=== PATIENT | male | born 1955 | race Caucasian/White ===

== ENCOUNTER 2017-12-13 08:18 | Outpatient (CLI) | payer MEDICARE ==
--- NOTE | 2017-12-13 11:36 | ULT ---
BILATERAL RENAL ULTRASOUND: Date: 12/13/17 HISTORY: Chronic renal failure. COMPARISON: None. TECHNIQUE: Sagittal and transverse imaging is performed. FINDINGS: Bilaterally, no hydronephrosis. Anechoic focus in the right kidney measuring 2.1 x 1.8 x 2.1 cm. Righ t renal cyst is suspected. There is a small exophytic focus in the lower pole left kidney measuring 1 .1 x 1.2 x 1.2 cm. There is a slightly larger anechoic focus in the left kidney measuring 1.6 x 1.6 x 2.0 cm. Right kidney measures 13.0 x 6.4 x 6.2 cm. Left kidney measures 14.2 x 6.6 x 5.1 cm. Urinary bladder is grossly unremarkable. Limited evaluation due to inadequate distention. Bilateral u reteral jets are identified. IMPRESSION: 1. No hydronephrosis. 2. Bilateral renal cortical cysts. POS: [facility]
== END 2017-12-13 08:19 | disposition home or self-care (01) ==
LOC: BURULT 08:18
PROVIDERS: ATTEND Internal Medicine Nephrology
DX: N17.9 Acute kidney failure, unspecified (principal); N28.1 Cyst of kidney, acquired
CPT/HCPCS: 76770

== ENCOUNTER 2020-07-13 21:08 | Emergency (ER) | payer MEDICARE ==
[~2020-07-13 21:08] MED LIST: Iopamidol 370 76% 100 ML VIAL ONE
[2020-07-13 22:13] LABS: #Basophils 0.1 thou/uL (0.0-0.2); #Eosinphils 0.2 thou/uL (0.0-0.7); #Lymphocytes 2.3 thou/uL (1.20-3.40); #Neutrophils 10.9 thou/uL (1.40-6.50); %Basophils 0.5 % (0.0-1.0); %Eosinophils 1.4 % (0.0-10.0); %Monocytes 6.7 % (0.0-10.0); %Neutrophils 75.5 % (42.0-75.0); Mean Corpuscular HGB CONC 32.2 g/dL (32.0-36.0); Mean Corpuscular Hemoglobin 28.6 pg (27.0-31.0); Mean Corpuscular Volume 88.8 fL (78.0-98.0); Mean Platelet Volume 6.6 fL (7.4-10.4); Platelet Count 232 thou/uL (130-400); RBC Distribution Width 15.8 % (11.5-14.5); Red Blood Cell (RBC) Count 3.83 mill/uL (4.70-6.10); White Blood Cell (WBC) Count 14.4 thou/uL (4.8-10.8)
[2020-07-13 22:24] LABS: ALT (SGPT) 38 U/L (8-55); AST (SGOT) 44 U/L (5-34); Albumin 1.8 g/dL (3.4-4.8); Alkaline Phosphatase 173 U/L (40-110); Anion Gap 11 mmol/L (10-20); BUN (Urea Nitrogen) 13 mg/dL (8.4-25.7); Bilirubin, Total 0.3 mg/dL (0.2-1.2); Calc. Creatinine Clearance 0 mL/min (70-130); Calcium 7.4 mg/dL (7.8-10.44); Carbon Dioxide 23 mmol/L (23-31); Chloride 108 mmol/L (98-107); Globulin 3.7 g/dL (2.4-3.5); Glucose 96 mg/dL (80-115); Potassium 3.4 mmol/L (3.5-5.1); Protein, Total 5.5 g/dL (5.8-8.1); Sodium 139 mmol/L (136-145)
[2020-07-13] MEDS ORDERED: Ondansetron ODT 4 MG TAB ONE (22:24)
[2020-07-13] MEDS ORDERED: Sodium Chloride 0.9% 100 ML ONE (22:43)
[2020-07-13] MEDS ORDERED: Cefepime 2 GM VIAL ONE (22:43)
== END 2020-07-14 01:57 | disposition short-term general hospital (02) ==
LOC: BURERS 21:08
DX: L89.154 Pressure ulcer of sacral region, stage 4 (principal); L03.317 Cellulitis of buttock; K57.30 Diverticulosis of large intestine without perforation or abscess without bleeding; I71.4 Abdominal aortic aneurysm, without rupture; K21.9 Gastro-esophageal reflux disease without esophagitis; E78.00 Pure hypercholesterolemia, unspecified; I25.10 Atherosclerotic heart disease of native coronary artery without angina pectoris; I25.2 Old myocardial infarction; I10 Essential (primary) hypertension; Z79.899 Other long term (current) drug therapy; Z79.82 Long term (current) use of aspirin
CPT/HCPCS: 36415; 72193; 80053; 83605; 85025; 87040; 87070; 87077; 87186; 87205; 96365; 96367; J0692; J3370; J3490; Q0162; Q9967

== ENCOUNTER 2020-07-24 14:00 | Inpatient (IN) | payer MEDICARE ==
[2020-07-24 15:34] VITALS: BMI 28.8
[2020-07-24] MEDS ORDERED: Loperamide HCl 2 MG CAP PO PRN (17:53)
[2020-07-24] MEDS ORDERED: Benzonatate 100 MG CAP PO PRN (17:53)
[2020-07-24] MEDS ORDERED: MEROPENEM 1 GM/50 ML IVPB SCH (20:00)
[2020-07-24] MEDS: Meropenem 1 GM in Sodium Chloride 0.9% 100 ML IVPB SCH (20:19)
[2020-07-24] MEDS: Rosuvastatin 10 MG TAB PO SCH (20:21)
[2020-07-24] MEDS: Acetaminophen 325 MG TAB PO PRN (20:21)
[2020-07-24] MEDS: Carvedilol 3.125 MG TAB PO SCH (20:21)
[2020-07-24] MEDS: Potassium Chloride 20 MEQ TAB PO SCH (20:22)
[2020-07-24] MEDS: Calcium Carbonate 600 MG + Vit D TAB PO SCH (20:22)
[2020-07-24] MEDS: traMADol HCl 50 MG TAB PO PRN (20:23)
[2020-07-24] MEDS: Mometasone/Formoterol 60 PUFF AER INH SCH (20:43)
[2020-07-25] MEDS: Meropenem 1 GM in Sodium Chloride 0.9% 100 ML IVPB SCH ×3 (04:27→21:12)
[2020-07-25] MEDS ORDERED: Meropenem 1 GM VIAL ONE (04:29)
[2020-07-25 05:25] LABS: #Eosinphils 0.3 thou/uL (0.0-0.7); #Lymphocytes 1.6 thou/uL (1.20-3.40); #Monocytes 0.9 thou/uL (0.11-0.59); %Basophils 0.3 % (0.0-1.0); %Eosinophils 1.7 % (0.0-10.0); %Lymphocytes 10.5 % (21.0-51.0); %Monocytes 6.1 % (0.0-10.0); %Neutrophils 81.4 % (42.0-75.0); Hemoglobin 9.7 g/dL (14.0-18.0); Mean Corpuscular HGB CONC 33.1 g/dL (32.0-36.0); Mean Corpuscular Hemoglobin 29.2 pg (27.0-31.0); Mean Corpuscular Volume 88.3 fL (78.0-98.0); Mean Platelet Volume 7.8 fL (7.4-10.4); Platelet Count 138 thou/uL (130-400); RBC Distribution Width 16.3 % (11.5-14.5); Red Blood Cell (RBC) Count 3.33 mill/uL (4.70-6.10); White Blood Cell (WBC) Count 14.8 thou/uL (4.8-10.8)
[2020-07-25 05:42] LABS: ALT (SGPT) 50 U/L (8-55); AST (SGOT) 30 U/L (5-34); Albumin 1.9 g/dL (3.4-4.8); Alkaline Phosphatase 111 U/L (40-110); Anion Gap 12 mmol/L (10-20); BUN (Urea Nitrogen) 8 mg/dL (8.4-25.7); Bilirubin, Total 0.4 mg/dL (0.2-1.2); CRP (Inflammatory) 4.62 mg/dL (= or < 0.5); Calc. Creatinine Clearance 180 mL/min (70-130); Calcium 6.6 mg/dL (7.8-10.44); Carbon Dioxide 20 mmol/L (23-31); Chloride 114 mmol/L (98-107); Globulin 2.2 g/dL (2.4-3.5); Glucose 109 mg/dL (80-115); Potassium 3.7 mmol/L (3.5-5.1); Protein, Total 4.1 g/dL (5.8-8.1); Sodium 142 mmol/L (136-145)
[2020-07-25] MEDS ORDERED: Morphine 4 MG/ML VIAL ONE (10:08)
[2020-07-25] MEDS ORDERED: Morphine 2 MG/ML VIAL SLOW IVP SCH (10:15)
[2020-07-25] MEDS: Mometasone/Formoterol 60 PUFF AER INH SCH ×2 (10:49→21:33)
[2020-07-25] MEDS: Ascorbic Acid 500 mg Chewable Tablet PO SCH (10:57)
[2020-07-25] MEDS: Clopidogrel Bisulfate 75 MG TAB PO SCH (10:57)
[2020-07-25] MEDS: Saccharomyces boulardii 250 MG CAP PO SCH (10:58)
[2020-07-25] MEDS: predniSONE 20 MG TAB PO SCH (10:58)
[2020-07-25] MEDS: Escitalopram Oxalate 20 mg Tablet PO SCH (10:58)
[2020-07-25] MEDS: Calcium Carbonate 600 MG + Vit D TAB PO SCH ×2 (10:58→21:17)
[2020-07-25] MEDS: Carvedilol 3.125 MG TAB PO SCH ×2 (10:58→21:17)
[2020-07-25] MEDS: Aspirin 81 mg Enteric Coated Tablet PO SCH (10:58)
[2020-07-25] MEDS: Potassium Chloride 20 MEQ TAB PO SCH ×3 (11:00→21:16)
[2020-07-25] MEDS: Polyethylene Glycol 3350 17 GM Packet PO SCH (11:00)
[2020-07-25] MEDS: traMADol HCl 50 MG TAB PO PRN (16:45)
[2020-07-25] MEDS: Acetaminophen 325 MG TAB PO PRN (16:46)
[2020-07-25] MEDS: Rosuvastatin 10 MG TAB PO SCH (21:17)
[2020-07-26] MEDS: Meropenem 1 GM in Sodium Chloride 0.9% 100 ML IVPB SCH ×3 (04:14→20:36)
[2020-07-26 06:15] LABS: Potassium 4.4 mmol/L (3.5-5.1)
[2020-07-26] MEDS: Escitalopram Oxalate 20 mg Tablet PO SCH (08:36)
[2020-07-26] MEDS: Ascorbic Acid 500 mg Chewable Tablet PO SCH (08:36)
[2020-07-26] MEDS: Calcium Carbonate 600 MG + Vit D TAB PO SCH ×2 (08:37→20:36)
[2020-07-26] MEDS: Aspirin 81 mg Enteric Coated Tablet PO SCH (08:37)
[2020-07-26] MEDS: Clopidogrel Bisulfate 75 MG TAB PO SCH (08:37)
[2020-07-26] MEDS: predniSONE 20 MG TAB PO SCH (08:37)
[2020-07-26] MEDS: Carvedilol 3.125 MG TAB PO SCH ×2 (08:37→20:36)
[2020-07-26] MEDS: Saccharomyces boulardii 250 MG CAP PO SCH (08:37)
[2020-07-26] MEDS: Polyethylene Glycol 3350 17 GM Packet PO SCH (08:43)
[2020-07-26] MEDS: Mometasone/Formoterol 60 PUFF AER INH SCH ×2 (08:45→20:37)
[2020-07-26] MEDS: Potassium Chloride 20 MEQ TAB PO SCH ×2 (08:48→20:37)
[2020-07-26] MEDS: traMADol HCl 50 MG TAB PO PRN (11:55)
[2020-07-26] MEDS: Rosuvastatin 10 MG TAB PO SCH (20:36)
[2020-07-27] MEDS: Meropenem 1 GM in Sodium Chloride 0.9% 100 ML IVPB SCH ×3 (03:58→21:09)
[2020-07-27] MEDS: Aspirin 81 mg Enteric Coated Tablet PO SCH (09:54)
[2020-07-27] MEDS: Ascorbic Acid 500 mg Chewable Tablet PO SCH (09:54)
[2020-07-27] MEDS: Carvedilol 3.125 MG TAB PO SCH ×2 (09:54→21:11)
[2020-07-27] MEDS: Clopidogrel Bisulfate 75 MG TAB PO SCH (09:54)
[2020-07-27] MEDS: Calcium Carbonate 600 MG + Vit D TAB PO SCH ×2 (09:55→21:11)
[2020-07-27] MEDS: Potassium Chloride 20 MEQ TAB PO SCH ×2 (09:55→21:12)
[2020-07-27] MEDS: Saccharomyces boulardii 250 MG CAP PO SCH (09:55)
[2020-07-27] MEDS: predniSONE 20 MG TAB PO SCH (09:56)
[2020-07-27] MEDS: traMADol HCl 50 MG TAB PO PRN ×2 (09:56→21:10)
[2020-07-27] MEDS: Escitalopram Oxalate 20 mg Tablet PO SCH (09:56)
[2020-07-27] MEDS: Mometasone/Formoterol 60 PUFF AER INH SCH ×2 (09:57→21:17)
[2020-07-27] MEDS: Polyethylene Glycol 3350 17 GM Packet PO SCH (14:37)
[2020-07-27] MEDS: Morphine 4 MG/ML VIAL SLOW IVP PRN (15:10)
[2020-07-27] MEDS: Rosuvastatin 10 MG TAB PO SCH (21:11)
[2020-07-28] MEDS: Meropenem 1 GM in Sodium Chloride 0.9% 100 ML IVPB SCH ×3 (04:18→20:52)
[2020-07-28] MEDS: Mometasone/Formoterol 60 PUFF AER INH SCH ×2 (08:08→20:53)
[2020-07-28] MEDS: predniSONE 20 MG TAB PO SCH (08:09)
[2020-07-28] MEDS: Ascorbic Acid 500 mg Chewable Tablet PO SCH (08:09)
[2020-07-28] MEDS: Aspirin 81 mg Enteric Coated Tablet PO SCH (08:09)
[2020-07-28] MEDS: Saccharomyces boulardii 250 MG CAP PO SCH (08:09)
[2020-07-28] MEDS: Polyethylene Glycol 3350 17 GM Packet PO SCH (08:09)
[2020-07-28] MEDS: Calcium Carbonate 600 MG + Vit D TAB PO SCH ×2 (08:09→20:50)
[2020-07-28] MEDS: Escitalopram Oxalate 20 mg Tablet PO SCH (08:14)
[2020-07-28] MEDS: Potassium Chloride 20 MEQ TAB PO SCH ×2 (08:15→20:50)
[2020-07-28] MEDS: Carvedilol 3.125 MG TAB PO SCH ×2 (08:15→20:50)
[2020-07-28] MEDS: Clopidogrel Bisulfate 75 MG TAB PO SCH (08:15)
[2020-07-28] MEDS ORDERED: Nystatin Powder 15 GM BOT TOP SCH (11:00)
[2020-07-28] MEDS: Ondansetron ODT 4 MG TAB PO PRN (12:10)
[2020-07-28] MEDS: traMADol HCl 50 MG TAB PO PRN (12:55)
[2020-07-28] MEDS: Rosuvastatin 10 MG TAB PO SCH (20:50)
[2020-07-28] MEDS: Nystatin Powder 15 GM BOT TOP SCH (20:54)
[2020-07-29] MEDS: Meropenem 1 GM in Sodium Chloride 0.9% 100 ML IVPB SCH ×3 (04:06→20:55)
[2020-07-29] MEDS: Ascorbic Acid 500 mg Chewable Tablet PO SCH (08:05)
[2020-07-29] MEDS: Saccharomyces boulardii 250 MG CAP PO SCH (08:06)
[2020-07-29] MEDS: Potassium Chloride 20 MEQ TAB PO SCH ×2 (08:06→21:04)
[2020-07-29] MEDS: predniSONE 20 MG TAB PO SCH (08:07)
[2020-07-29] MEDS: Calcium Carbonate 600 MG + Vit D TAB PO SCH ×2 (08:07→21:04)
[2020-07-29] MEDS: Escitalopram Oxalate 20 mg Tablet PO SCH (08:08)
[2020-07-29] MEDS: Carvedilol 3.125 MG TAB PO SCH ×2 (08:08→21:04)
[2020-07-29] MEDS: Aspirin 81 mg Enteric Coated Tablet PO SCH (08:08)
[2020-07-29] MEDS: Clopidogrel Bisulfate 75 MG TAB PO SCH (08:08)
[2020-07-29] MEDS: Mometasone/Formoterol 60 PUFF AER INH SCH ×2 (08:09→21:05)
[2020-07-29] MEDS: Nystatin Powder 15 GM BOT TOP SCH ×2 (08:13→21:46)
[2020-07-29] MEDS: Polyethylene Glycol 3350 17 GM Packet PO SCH (08:13)
[2020-07-29] MEDS: Ondansetron ODT 4 MG TAB PO PRN (08:19)
[2020-07-29] MEDS ORDERED: Morphine 2 MG/ML VIAL ONE (11:22)
[2020-07-29] MEDS ORDERED: Morphine 4 MG/ML VIAL ONE (11:30)
[2020-07-29] MEDS: Morphine 4 MG/ML VIAL SLOW IVP PRN (11:32)
[2020-07-29] MEDS: traMADol HCl 50 MG TAB PO PRN (14:09)
[2020-07-29] MEDS: Rosuvastatin 10 MG TAB PO SCH (21:04)
[2020-07-30] MEDS: Meropenem 1 GM in Sodium Chloride 0.9% 100 ML IVPB SCH ×3 (04:22→20:52)
[2020-07-30 05:35] LABS: #Eosinphils 0.3 thou/uL (0.0-0.7); #Lymphocytes 1.5 thou/uL (1.20-3.40); #Monocytes 0.7 thou/uL (0.11-0.59); #Neutrophils 8.2 thou/uL (1.40-6.50); %Basophils 0.3 % (0.0-1.0); %Eosinophils 3.1 % (0.0-10.0); %Lymphocytes 14.2 % (21.0-51.0); %Monocytes 6.3 % (0.0-10.0); Hemoglobin 9.9 g/dL (14.0-18.0); Mean Corpuscular HGB CONC 32.9 g/dL (32.0-36.0); Mean Corpuscular Hemoglobin 29.2 pg (27.0-31.0); Mean Corpuscular Volume 88.9 fL (78.0-98.0); Mean Platelet Volume 7.2 fL (7.4-10.4); Platelet Count 156 thou/uL (130-400); RBC Distribution Width 15.5 % (11.5-14.5); Red Blood Cell (RBC) Count 3.38 mill/uL (4.70-6.10); White Blood Cell (WBC) Count 10.8 thou/uL (4.8-10.8)
[2020-07-30 05:42] LABS: Anion Gap 10 mmol/L (10-20); Calc. Creatinine Clearance 201 mL/min (70-130); Calcium 7.4 mg/dL (7.8-10.44); Carbon Dioxide 22 mmol/L (23-31); Chloride 109 mmol/L (98-107); Glucose 116 mg/dL (80-115); Sodium 137 mmol/L (136-145)
[2020-07-30 05:46] LABS: BUN (Urea Nitrogen) 8 mg/dL (8.4-25.7)
[2020-07-30] MEDS: Saccharomyces boulardii 250 MG CAP PO SCH (09:52)
[2020-07-30] MEDS: predniSONE 20 MG TAB PO SCH (09:52)
[2020-07-30] MEDS: Aspirin 81 mg Enteric Coated Tablet PO SCH (09:52)
[2020-07-30] MEDS: Carvedilol 3.125 MG TAB PO SCH ×2 (09:52→20:53)
[2020-07-30] MEDS: Escitalopram Oxalate 20 mg Tablet PO SCH (09:53)
[2020-07-30] MEDS: Ascorbic Acid 500 mg Chewable Tablet PO SCH (09:53)
[2020-07-30] MEDS: Clopidogrel Bisulfate 75 MG TAB PO SCH (09:53)
[2020-07-30] MEDS: Calcium Carbonate 600 MG + Vit D TAB PO SCH ×2 (09:53→20:53)
[2020-07-30] MEDS: Potassium Chloride 20 MEQ TAB PO SCH ×2 (09:54→20:53)
[2020-07-30] MEDS: Polyethylene Glycol 3350 17 GM Packet PO SCH (09:55)
[2020-07-30] MEDS: Mometasone/Formoterol 60 PUFF AER INH SCH ×2 (09:55→20:54)
[2020-07-30] MEDS: Metoclopramide HCl 10 MG/2 ML VIAL IVP PRN (11:00)
[2020-07-30] MEDS: Nystatin Powder 15 GM BOT TOP SCH ×2 (11:02→20:54)
[2020-07-30] MEDS: traMADol HCl 50 MG TAB PO PRN (15:14)
[2020-07-30] MEDS: Rosuvastatin 10 MG TAB PO SCH (20:53)
[2020-07-31] MEDS: Meropenem 1 GM in Sodium Chloride 0.9% 100 ML IVPB SCH ×3 (03:48→21:02)
[2020-07-31] MEDS: Escitalopram Oxalate 20 mg Tablet PO SCH (09:13)
[2020-07-31] MEDS: Carvedilol 3.125 MG TAB PO SCH ×2 (09:14→21:03)
[2020-07-31] MEDS: Potassium Chloride 20 MEQ TAB PO SCH ×2 (09:14→21:02)
[2020-07-31] MEDS: Ascorbic Acid 500 mg Chewable Tablet PO SCH (09:14)
[2020-07-31] MEDS: predniSONE 20 MG TAB PO SCH (09:14)
[2020-07-31] MEDS: Calcium Carbonate 600 MG + Vit D TAB PO SCH ×2 (09:14→21:03)
[2020-07-31] MEDS: Saccharomyces boulardii 250 MG CAP PO SCH (09:14)
[2020-07-31] MEDS: traMADol HCl 50 MG TAB PO PRN ×3 (09:15→21:03)
[2020-07-31] MEDS: Clopidogrel Bisulfate 75 MG TAB PO SCH (09:15)
[2020-07-31] MEDS: Mometasone/Formoterol 60 PUFF AER INH SCH ×2 (10:20→21:04)
[2020-07-31] MEDS: Aspirin 81 mg Enteric Coated Tablet PO SCH (10:22)
[2020-07-31] MEDS: Nystatin Powder 15 GM BOT TOP SCH ×2 (10:22→21:04)
[2020-07-31] MEDS: Polyethylene Glycol 3350 17 GM Packet PO SCH (10:23)
[2020-07-31] MEDS: Morphine 4 MG/ML VIAL SLOW IVP PRN (13:55)
[2020-07-31] MEDS: Rosuvastatin 10 MG TAB PO SCH (21:03)
[2020-08-01] MEDS: Meropenem 1 GM in Sodium Chloride 0.9% 100 ML IVPB SCH ×3 (03:51→20:30)
[2020-08-01] MEDS: Metoclopramide HCl 10 MG/2 ML VIAL IVP PRN ×2 (04:26→11:26)
[2020-08-01 09:19] LABS: #Basophils 0.1 thou/uL (0.0-0.2); #Eosinphils 0.4 thou/uL (0.0-0.7); #Lymphocytes 1.3 thou/uL (1.20-3.40); #Monocytes 0.5 thou/uL (0.11-0.59); #Neutrophils 10.2 thou/uL (1.40-6.50); %Basophils 0.6 % (0.0-1.0); %Eosinophils 3.3 % (0.0-10.0); %Monocytes 4.3 % (0.0-10.0); %Neutrophils 81.8 % (42.0-75.0); Hemoglobin 11.6 g/dL (14.0-18.0); Mean Corpuscular HGB CONC 31.3 g/dL (32.0-36.0); Mean Corpuscular Hemoglobin 28.3 pg (27.0-31.0); Mean Corpuscular Volume 90.4 fL (78.0-98.0); Mean Platelet Volume 6.5 fL (7.4-10.4); Platelet Count 193 thou/uL (130-400); RBC Distribution Width 15.5 % (11.5-14.5); White Blood Cell (WBC) Count 12.4 thou/uL (4.8-10.8)
[2020-08-01] MEDS: Ascorbic Acid 500 mg Chewable Tablet PO SCH (09:23)
[2020-08-01] MEDS: Aspirin 81 mg Enteric Coated Tablet PO SCH (09:23)
[2020-08-01] MEDS: Potassium Chloride 20 MEQ TAB PO SCH ×3 (09:23→20:31)
[2020-08-01] MEDS: Escitalopram Oxalate 20 mg Tablet PO SCH (09:24)
[2020-08-01] MEDS: Clopidogrel Bisulfate 75 MG TAB PO SCH (09:24)
[2020-08-01] MEDS: Carvedilol 3.125 MG TAB PO SCH ×2 (09:24→20:31)
[2020-08-01] MEDS: Saccharomyces boulardii 250 MG CAP PO SCH (09:24)
[2020-08-01] MEDS: Calcium Carbonate 600 MG + Vit D TAB PO SCH ×2 (09:24→20:31)
[2020-08-01 09:35] LABS: ALT (SGPT) 64 U/L (8-55); AST (SGOT) 32 U/L (5-34); Albumin 2.3 g/dL (3.4-4.8); Alkaline Phosphatase 116 U/L (40-110); BUN (Urea Nitrogen) 10 mg/dL (8.4-25.7); Bilirubin, Total 0.5 mg/dL (0.2-1.2); Calc. Creatinine Clearance 177 mL/min (70-130); Calcium 7.8 mg/dL (7.8-10.44); Carbon Dioxide 18 mmol/L (23-31); Chloride 77 mmol/L (98-107); Globulin 3.3 g/dL (2.4-3.5); Glucose 136 mg/dL (80-115); Protein, Total 5.6 g/dL (5.8-8.1)
[2020-08-01 09:42] LABS: Potassium 2.2 mmol/L (3.5-5.1)
[2020-08-01] MEDS: Mometasone/Formoterol 60 PUFF AER INH SCH ×2 (09:47→20:31)
[2020-08-01] MEDS: traMADol HCl 50 MG TAB PO PRN (09:48)
[2020-08-01] MEDS: Nystatin Powder 15 GM BOT TOP SCH ×2 (09:50→20:31)
[2020-08-01 09:51] LABS: Sodium 136 mmol/L (136-145)
[2020-08-01 09:55] LABS: Anion Gap 43 mmol/L (10-20)
[2020-08-01] MEDS: Polyethylene Glycol 3350 17 GM Packet PO SCH (13:48)
[2020-08-01] MEDS: Rosuvastatin 10 MG TAB PO SCH (20:31)
[2020-08-02] MEDS: Meropenem 1 GM in Sodium Chloride 0.9% 100 ML IVPB SCH ×3 (03:27→20:04)
[2020-08-02] MEDS: Potassium Chloride 20 MEQ TAB PO SCH ×3 (09:17→20:05)
[2020-08-02] MEDS: Aspirin 81 mg Enteric Coated Tablet PO SCH (09:18)
[2020-08-02] MEDS: Ascorbic Acid 500 mg Chewable Tablet PO SCH (09:18)
[2020-08-02] MEDS: Calcium Carbonate 600 MG + Vit D TAB PO SCH ×2 (09:18→20:06)
[2020-08-02] MEDS: Saccharomyces boulardii 250 MG CAP PO SCH (09:18)
[2020-08-02] MEDS: Carvedilol 3.125 MG TAB PO SCH ×2 (09:18→20:06)
[2020-08-02] MEDS: Clopidogrel Bisulfate 75 MG TAB PO SCH (09:18)
[2020-08-02] MEDS: Escitalopram Oxalate 20 mg Tablet PO SCH (09:19)
[2020-08-02] MEDS: Metoclopramide HCl 10 MG/2 ML VIAL IVP PRN (09:19)
[2020-08-02] MEDS: Mometasone/Formoterol 60 PUFF AER INH SCH ×2 (09:20→20:06)
[2020-08-02] MEDS: Nystatin Powder 15 GM BOT TOP SCH ×2 (09:20→20:06)
[2020-08-02] MEDS: traMADol HCl 50 MG TAB PO PRN ×2 (10:08→20:34)
[2020-08-02] MEDS: Polyethylene Glycol 3350 17 GM Packet PO SCH (18:54)
[2020-08-02] MEDS: Rosuvastatin 10 MG TAB PO SCH (20:06)
[2020-08-03] MEDS: Meropenem 1 GM in Sodium Chloride 0.9% 100 ML IVPB SCH ×3 (05:14→20:30)
[2020-08-03 05:19] LABS: Anion Gap 12 mmol/L (10-20)
[2020-08-03 05:29] LABS: ALT (SGPT) 51 U/L (8-55); AST (SGOT) 25 U/L (5-34); Alkaline Phosphatase 110 U/L (40-110); BUN (Urea Nitrogen) 10 mg/dL (8.4-25.7); Bilirubin, Total 0.5 mg/dL (0.2-1.2); Calc. Creatinine Clearance 177 mL/min (70-130); Calcium 7.8 mg/dL (7.8-10.44); Carbon Dioxide 19 mmol/L (23-31); Chloride 111 mmol/L (98-107); Globulin 3.3 g/dL (2.4-3.5); Glucose 121 mg/dL (80-115); Potassium 4.2 mmol/L (3.5-5.1); Protein, Total 5.3 g/dL (5.8-8.1); Sodium 138 mmol/L (136-145)
[2020-08-03] MEDS: Acetaminophen 325 MG TAB PO PRN (06:08)
[2020-08-03] MEDS: traMADol HCl 50 MG TAB PO PRN ×2 (06:09→13:28)
[2020-08-03] MEDS: Potassium Chloride 20 MEQ TAB PO SCH ×3 (08:18→20:31)
[2020-08-03] MEDS: Saccharomyces boulardii 250 MG CAP PO SCH (08:19)
[2020-08-03] MEDS: Aspirin 81 mg Enteric Coated Tablet PO SCH (08:19)
[2020-08-03] MEDS: Clopidogrel Bisulfate 75 MG TAB PO SCH (08:19)
[2020-08-03] MEDS: Carvedilol 3.125 MG TAB PO SCH ×2 (08:19→20:31)
[2020-08-03] MEDS: Escitalopram Oxalate 20 mg Tablet PO SCH (08:19)
[2020-08-03] MEDS: Calcium Carbonate 600 MG + Vit D TAB PO SCH ×2 (08:19→20:30)
[2020-08-03] MEDS: Ascorbic Acid 500 mg Chewable Tablet PO SCH (08:20)
[2020-08-03] MEDS: Mometasone/Formoterol 60 PUFF AER INH SCH ×2 (08:20→20:33)
[2020-08-03] MEDS: Nystatin Powder 15 GM BOT TOP SCH ×2 (08:22→20:36)
[2020-08-03] MEDS: Polyethylene Glycol 3350 17 GM Packet PO SCH (08:23)
[2020-08-03] MEDS: Morphine 2 MG/ML VIAL SLOW IVP PRN (13:29)
[2020-08-03] MEDS: Mirtazapine 15 MG TAB PO SCH (20:31)
[2020-08-03] MEDS: Rosuvastatin 10 MG TAB PO SCH (20:32)
[2020-08-04] MEDS: Meropenem 1 GM in Sodium Chloride 0.9% 100 ML IVPB SCH ×3 (03:33→20:42)
[2020-08-04] MEDS: Ascorbic Acid 500 mg Chewable Tablet PO SCH (08:39)
[2020-08-04] MEDS: Saccharomyces boulardii 250 MG CAP PO SCH (08:39)
[2020-08-04] MEDS: Aspirin 81 mg Enteric Coated Tablet PO SCH (08:39)
[2020-08-04] MEDS: Potassium Chloride 20 MEQ TAB PO SCH ×3 (08:39→21:00)
[2020-08-04] MEDS: Carvedilol 3.125 MG TAB PO SCH ×2 (08:40→21:01)
[2020-08-04] MEDS: Escitalopram Oxalate 20 mg Tablet PO SCH (08:40)
[2020-08-04] MEDS: Clopidogrel Bisulfate 75 MG TAB PO SCH (08:40)
[2020-08-04] MEDS: Calcium Carbonate 600 MG + Vit D TAB PO SCH ×2 (08:40→21:00)
[2020-08-04] MEDS: Mometasone/Formoterol 60 PUFF AER INH SCH ×2 (08:44→21:03)
[2020-08-04] MEDS: Nystatin Powder 15 GM BOT TOP SCH ×2 (08:45→21:05)
[2020-08-04] MEDS: traMADol HCl 50 MG TAB PO PRN ×2 (12:03→21:01)
[2020-08-04] MEDS: Polyethylene Glycol 3350 17 GM Packet PO SCH (12:04)
[2020-08-04] MEDS: Rosuvastatin 10 MG TAB PO SCH (21:00)
[2020-08-04] MEDS: Mirtazapine 15 MG TAB PO SCH (21:00)
[2020-08-04] MEDS: Acetaminophen 325 MG TAB PO PRN (21:01)
[2020-08-05] MEDS: Meropenem 1 GM in Sodium Chloride 0.9% 100 ML IVPB SCH ×3 (04:06→20:27)
[2020-08-05] MEDS: Ascorbic Acid 500 mg Chewable Tablet PO SCH (08:33)
[2020-08-05] MEDS: Aspirin 81 mg Enteric Coated Tablet PO SCH (08:36)
[2020-08-05] MEDS: Saccharomyces boulardii 250 MG CAP PO SCH (08:36)
[2020-08-05] MEDS: Calcium Carbonate 600 MG + Vit D TAB PO SCH ×2 (08:36→20:42)
[2020-08-05] MEDS: Carvedilol 3.125 MG TAB PO SCH ×2 (08:36→20:42)
[2020-08-05] MEDS: traMADol HCl 50 MG TAB PO PRN ×3 (08:36→20:54)
[2020-08-05] MEDS: Clopidogrel Bisulfate 75 MG TAB PO SCH (08:37)
[2020-08-05] MEDS: Escitalopram Oxalate 20 mg Tablet PO SCH (08:37)
[2020-08-05] MEDS: Potassium Chloride 20 MEQ TAB PO SCH ×3 (08:38→20:42)
[2020-08-05] MEDS: Nystatin Powder 15 GM BOT TOP SCH ×2 (08:39→20:43)
[2020-08-05] MEDS: Mometasone/Formoterol 60 PUFF AER INH SCH ×2 (08:39→20:43)
[2020-08-05] MEDS: Polyethylene Glycol 3350 17 GM Packet PO SCH (10:34)
[2020-08-05] MEDS: Morphine 2 MG/ML VIAL SLOW IVP PRN (14:24)
[2020-08-05] MEDS: Rosuvastatin 10 MG TAB PO SCH (20:42)
[2020-08-05] MEDS: Mirtazapine 15 MG TAB PO SCH (20:42)
[2020-08-06] MEDS: Meropenem 1 GM in Sodium Chloride 0.9% 100 ML IVPB SCH ×3 (03:56→20:21)
[2020-08-06] MEDS: Escitalopram Oxalate 20 mg Tablet PO SCH (09:08)
[2020-08-06] MEDS: Potassium Chloride 20 MEQ TAB PO SCH ×3 (09:08→20:21)
[2020-08-06] MEDS: Saccharomyces boulardii 250 MG CAP PO SCH (09:08)
[2020-08-06] MEDS: Ascorbic Acid 500 mg Chewable Tablet PO SCH (09:08)
[2020-08-06] MEDS: Aspirin 81 mg Enteric Coated Tablet PO SCH (09:09)
[2020-08-06] MEDS: Clopidogrel Bisulfate 75 MG TAB PO SCH (09:09)
[2020-08-06] MEDS: Carvedilol 3.125 MG TAB PO SCH ×2 (09:09→20:21)
[2020-08-06] MEDS: Calcium Carbonate 600 MG + Vit D TAB PO SCH ×2 (09:09→20:21)
[2020-08-06] MEDS: Mometasone/Formoterol 60 PUFF AER INH SCH ×2 (09:10→20:22)
[2020-08-06] MEDS: Nystatin Powder 15 GM BOT TOP SCH ×2 (09:12→20:22)
[2020-08-06] MEDS: traMADol HCl 50 MG TAB PO PRN ×3 (09:22→20:55)
[2020-08-06] MEDS: Polyethylene Glycol 3350 17 GM Packet PO SCH (09:25)
[2020-08-06] MEDS: Rosuvastatin 10 MG TAB PO SCH (20:21)
[2020-08-06] MEDS: Mirtazapine 15 MG TAB PO SCH (20:21)
[2020-08-07] MEDS: traMADol HCl 50 MG TAB PO PRN (04:03)
[2020-08-07] MEDS: Meropenem 1 GM in Sodium Chloride 0.9% 100 ML IVPB SCH ×3 (04:09→20:59)
[2020-08-07] MEDS: Ascorbic Acid 500 mg Chewable Tablet PO SCH (09:05)
[2020-08-07] MEDS: Clopidogrel Bisulfate 75 MG TAB PO SCH (09:08)
[2020-08-07] MEDS: Saccharomyces boulardii 250 MG CAP PO SCH (09:08)
[2020-08-07] MEDS: Potassium Chloride 20 MEQ TAB PO SCH ×3 (09:08→20:59)
[2020-08-07] MEDS: Calcium Carbonate 600 MG + Vit D TAB PO SCH ×2 (09:08→21:00)
[2020-08-07] MEDS: Carvedilol 3.125 MG TAB PO SCH ×2 (09:09→21:00)
[2020-08-07] MEDS: Aspirin 81 mg Enteric Coated Tablet PO SCH (09:09)
[2020-08-07] MEDS: Escitalopram Oxalate 20 mg Tablet PO SCH (09:09)
[2020-08-07] MEDS: Metoclopramide HCl 10 MG/2 ML VIAL IVP PRN (09:40)
[2020-08-07] MEDS: Mometasone/Formoterol 60 PUFF AER INH SCH (12:31)
[2020-08-07] MEDS: Nystatin Powder 15 GM BOT TOP SCH (12:33)
[2020-08-07] MEDS: Polyethylene Glycol 3350 17 GM Packet PO SCH (12:34)
[2020-08-07] MEDS: Morphine 2 MG/ML VIAL SLOW IVP PRN (13:05)
[2020-08-07] MEDS: Rosuvastatin 10 MG TAB PO SCH (20:59)
[2020-08-07] MEDS: Mirtazapine 15 MG TAB PO SCH (21:00)
[2020-08-08] MEDS: traMADol HCl 50 MG TAB PO PRN ×3 (00:55→14:04)
[2020-08-08] MEDS: Mometasone/Formoterol 60 PUFF AER INH SCH ×3 (00:57→21:00)
[2020-08-08] MEDS: Nystatin Powder 15 GM BOT TOP SCH ×3 (00:58→21:00)
[2020-08-08] MEDS: Meropenem 1 GM in Sodium Chloride 0.9% 100 ML IVPB SCH ×3 (04:50→20:34)
[2020-08-08 07:18] LABS: #Eosinphils 0.4 thou/uL (0.0-0.7); #Lymphocytes 1.5 thou/uL (1.20-3.40); #Monocytes 0.6 thou/uL (0.11-0.59); #Neutrophils 3.8 thou/uL (1.40-6.50); %Basophils 0.7 % (0.0-1.0); %Eosinophils 6.1 % (0.0-10.0); %Lymphocytes 23.8 % (21.0-51.0); %Monocytes 8.9 % (0.0-10.0); %Neutrophils 60.5 % (42.0-75.0); Hemoglobin 10.5 g/dL (14.0-18.0); Mean Corpuscular HGB CONC 32.1 g/dL (32.0-36.0); Mean Corpuscular Hemoglobin 28.4 pg (27.0-31.0); Mean Corpuscular Volume 88.6 fL (78.0-98.0); Mean Platelet Volume 5.4 fL (7.4-10.4); Platelet Count 187 thou/uL (130-400); RBC Distribution Width 15.3 % (11.5-14.5); Red Blood Cell (RBC) Count 3.71 mill/uL (4.70-6.10); White Blood Cell (WBC) Count 6.3 thou/uL (4.8-10.8)
[2020-08-08 07:36] LABS: ALT (SGPT) 55 U/L (8-55); AST (SGOT) 43 U/L (5-34); Albumin 1.8 g/dL (3.4-4.8); Alkaline Phosphatase 125 U/L (40-110); Anion Gap 12 mmol/L (10-20); BUN (Urea Nitrogen) 11 mg/dL (8.4-25.7); Bilirubin, Total 0.5 mg/dL (0.2-1.2); Calc. Creatinine Clearance 171 mL/min (70-130); Calcium 7.7 mg/dL (7.8-10.44); Carbon Dioxide 18 mmol/L (23-31); Chloride 112 mmol/L (98-107); Globulin 3.7 g/dL (2.4-3.5); Glucose 90 mg/dL (80-115); Potassium 4.3 mmol/L (3.5-5.1); Protein, Total 5.5 g/dL (5.8-8.1); Sodium 138 mmol/L (136-145)
[2020-08-08] MEDS: Ascorbic Acid 500 mg Chewable Tablet PO SCH (09:12)
[2020-08-08] MEDS: Escitalopram Oxalate 20 mg Tablet PO SCH (09:13)
[2020-08-08] MEDS: Clopidogrel Bisulfate 75 MG TAB PO SCH (09:13)
[2020-08-08] MEDS: Calcium Carbonate 600 MG + Vit D TAB PO SCH ×2 (09:13→20:38)
[2020-08-08] MEDS: Saccharomyces boulardii 250 MG CAP PO SCH (09:13)
[2020-08-08] MEDS: Potassium Chloride 20 MEQ TAB PO SCH ×3 (09:13→20:37)
[2020-08-08] MEDS: Carvedilol 3.125 MG TAB PO SCH ×2 (09:14→20:38)
[2020-08-08] MEDS: Aspirin 81 mg Enteric Coated Tablet PO SCH (09:14)
[2020-08-08] MEDS: Polyethylene Glycol 3350 17 GM Packet PO SCH (09:27)
[2020-08-08] MEDS: Rosuvastatin 10 MG TAB PO SCH (20:38)
[2020-08-08] MEDS: Mirtazapine 15 MG TAB PO SCH (20:38)
[2020-08-09] MEDS: Meropenem 1 GM in Sodium Chloride 0.9% 100 ML IVPB SCH ×3 (04:02→20:57)
[2020-08-09] MEDS: Calcium Carbonate 600 MG + Vit D TAB PO SCH ×2 (08:55→20:55)
[2020-08-09] MEDS: Ascorbic Acid 500 mg Chewable Tablet PO SCH (08:55)
[2020-08-09] MEDS: Saccharomyces boulardii 250 MG CAP PO SCH (08:55)
[2020-08-09] MEDS: Potassium Chloride 20 MEQ TAB PO SCH ×3 (08:56→20:54)
[2020-08-09] MEDS: Aspirin 81 mg Enteric Coated Tablet PO SCH (08:56)
[2020-08-09] MEDS: Escitalopram Oxalate 20 mg Tablet PO SCH (08:56)
[2020-08-09] MEDS: Clopidogrel Bisulfate 75 MG TAB PO SCH (08:56)
[2020-08-09] MEDS: Mometasone/Formoterol 60 PUFF AER INH SCH ×2 (08:57→21:01)
[2020-08-09] MEDS: Carvedilol 3.125 MG TAB PO SCH ×2 (08:57→20:55)
[2020-08-09] MEDS: Nystatin Powder 15 GM BOT TOP SCH ×2 (09:00→21:02)
[2020-08-09] MEDS: Polyethylene Glycol 3350 17 GM Packet PO SCH (09:00)
[2020-08-09] MEDS: traMADol HCl 50 MG TAB PO PRN ×2 (09:07→21:05)
[2020-08-09] MEDS: Mirtazapine 15 MG TAB PO SCH (20:55)
[2020-08-09] MEDS: Rosuvastatin 10 MG TAB PO SCH (20:55)
[2020-08-10] MEDS: traMADol HCl 50 MG TAB PO PRN ×2 (01:13→09:35)
[2020-08-10] MEDS: Meropenem 1 GM in Sodium Chloride 0.9% 100 ML IVPB SCH ×3 (04:28→20:00)
[2020-08-10] MEDS: Saccharomyces boulardii 250 MG CAP PO SCH (08:52)
[2020-08-10] MEDS: Ascorbic Acid 500 mg Chewable Tablet PO SCH (08:52)
[2020-08-10] MEDS: Potassium Chloride 20 MEQ TAB PO SCH ×3 (08:53→20:06)
[2020-08-10] MEDS: Carvedilol 3.125 MG TAB PO SCH ×2 (08:53→20:06)
[2020-08-10] MEDS: Clopidogrel Bisulfate 75 MG TAB PO SCH (08:54)
[2020-08-10] MEDS: Aspirin 81 mg Enteric Coated Tablet PO SCH (08:54)
[2020-08-10] MEDS: Calcium Carbonate 600 MG + Vit D TAB PO SCH ×2 (08:54→20:06)
[2020-08-10] MEDS: Escitalopram Oxalate 20 mg Tablet PO SCH (08:54)
[2020-08-10] MEDS: Polyethylene Glycol 3350 17 GM Packet PO SCH (08:55)
[2020-08-10] MEDS: Mometasone/Formoterol 60 PUFF AER INH SCH ×2 (08:59→20:08)
[2020-08-10] MEDS: Nystatin Powder 15 GM BOT TOP SCH ×2 (09:00→20:07)
[2020-08-10] MEDS: Morphine 2 MG/ML VIAL SLOW IVP PRN (09:47)
[2020-08-10] MEDS: Metoclopramide HCl 10 MG/2 ML VIAL IVP PRN (11:43)
[2020-08-10] MEDS: Mirtazapine 15 MG TAB PO SCH (20:06)
[2020-08-10] MEDS: Rosuvastatin 10 MG TAB PO SCH (20:06)
[2020-08-11] MEDS: Meropenem 1 GM in Sodium Chloride 0.9% 100 ML IVPB SCH ×3 (04:17→20:22)
[2020-08-11] MEDS: Ascorbic Acid 500 mg Chewable Tablet PO SCH (09:21)
[2020-08-11] MEDS: Carvedilol 3.125 MG TAB PO SCH ×2 (09:21→20:23)
[2020-08-11] MEDS: Aspirin 81 mg Enteric Coated Tablet PO SCH (09:22)
[2020-08-11] MEDS: Escitalopram Oxalate 20 mg Tablet PO SCH (09:22)
[2020-08-11] MEDS: Potassium Chloride 20 MEQ TAB PO SCH ×3 (09:23→16:57)
[2020-08-11] MEDS: Clopidogrel Bisulfate 75 MG TAB PO SCH (09:23)
[2020-08-11] MEDS: Calcium Carbonate 600 MG + Vit D TAB PO SCH ×2 (09:23→20:23)
[2020-08-11] MEDS: Saccharomyces boulardii 250 MG CAP PO SCH (09:23)
[2020-08-11] MEDS: Nystatin Powder 15 GM BOT TOP SCH ×2 (09:28→20:23)
[2020-08-11] MEDS: Mometasone/Formoterol 60 PUFF AER INH SCH ×2 (09:28→20:24)
[2020-08-11] MEDS: Polyethylene Glycol 3350 17 GM Packet PO SCH (09:34)
[2020-08-11] MEDS: traMADol HCl 50 MG TAB PO PRN (11:19)
[2020-08-11] MEDS: Rosuvastatin 10 MG TAB PO SCH (20:23)
[2020-08-11] MEDS: Mirtazapine 15 MG TAB PO SCH (20:23)
[2020-08-12] MEDS: traMADol HCl 50 MG TAB PO PRN ×2 (00:37→10:40)
[2020-08-12] MEDS: Meropenem 1 GM in Sodium Chloride 0.9% 100 ML IVPB SCH ×3 (05:00→20:29)
[2020-08-12] MEDS: Metoclopramide HCl 10 MG/2 ML VIAL IVP PRN (08:26)
[2020-08-12] MEDS: Potassium Chloride 20 MEQ TAB PO SCH ×2 (08:32→17:39)
[2020-08-12] MEDS: Saccharomyces boulardii 250 MG CAP PO SCH (08:35)
[2020-08-12] MEDS: Ascorbic Acid 500 mg Chewable Tablet PO SCH (08:35)
[2020-08-12] MEDS: Clopidogrel Bisulfate 75 MG TAB PO SCH (08:36)
[2020-08-12] MEDS: Aspirin 81 mg Enteric Coated Tablet PO SCH (08:36)
[2020-08-12] MEDS: Escitalopram Oxalate 20 mg Tablet PO SCH (08:36)
[2020-08-12] MEDS: Calcium Carbonate 600 MG + Vit D TAB PO SCH ×2 (08:36→20:29)
[2020-08-12] MEDS: Carvedilol 3.125 MG TAB PO SCH ×2 (08:36→20:30)
[2020-08-12] MEDS: Nystatin Powder 15 GM BOT TOP SCH ×2 (08:38→20:32)
[2020-08-12] MEDS: Mometasone/Formoterol 60 PUFF AER INH SCH ×2 (08:38→20:31)
[2020-08-12] MEDS: Polyethylene Glycol 3350 17 GM Packet PO SCH (08:42)
[2020-08-12] MEDS: Morphine 2 MG/ML VIAL SLOW IVP PRN (14:22)
[2020-08-12] MEDS: Mirtazapine 15 MG TAB PO SCH (20:29)
[2020-08-12] MEDS: Rosuvastatin 10 MG TAB PO SCH (20:29)
[2020-08-13] MEDS: Meropenem 1 GM in Sodium Chloride 0.9% 100 ML IVPB SCH ×3 (03:58→20:01)
[2020-08-13] MEDS: traMADol HCl 50 MG TAB PO PRN ×3 (05:01→20:02)
[2020-08-13] MEDS: Potassium Chloride 20 MEQ TAB PO SCH ×2 (09:03→17:58)
[2020-08-13] MEDS: Aspirin 81 mg Enteric Coated Tablet PO SCH (09:03)
[2020-08-13] MEDS: Calcium Carbonate 600 MG + Vit D TAB PO SCH ×2 (09:03→20:01)
[2020-08-13] MEDS: Saccharomyces boulardii 250 MG CAP PO SCH (09:03)
[2020-08-13] MEDS: Clopidogrel Bisulfate 75 MG TAB PO SCH (09:04)
[2020-08-13] MEDS: Escitalopram Oxalate 20 mg Tablet PO SCH (09:04)
[2020-08-13] MEDS: Ascorbic Acid 500 mg Chewable Tablet PO SCH (09:04)
[2020-08-13] MEDS: Polyethylene Glycol 3350 17 GM Packet PO SCH (09:05)
[2020-08-13] MEDS: Nystatin Powder 15 GM BOT TOP SCH ×2 (09:05→20:03)
[2020-08-13] MEDS: Carvedilol 3.125 MG TAB PO SCH ×2 (09:05→20:02)
[2020-08-13] MEDS: Mometasone/Formoterol 60 PUFF AER INH SCH ×2 (09:06→20:03)
[2020-08-13] MEDS: Rosuvastatin 10 MG TAB PO SCH (20:01)
[2020-08-13] MEDS: Mirtazapine 15 MG TAB PO SCH (20:02)
[2020-08-14] MEDS: Meropenem 1 GM in Sodium Chloride 0.9% 100 ML IVPB SCH ×3 (04:12→20:22)
[2020-08-14] MEDS: Aspirin 81 mg Enteric Coated Tablet PO SCH (10:20)
[2020-08-14] MEDS: Potassium Chloride 20 MEQ TAB PO SCH ×2 (10:20→17:46)
[2020-08-14] MEDS: Saccharomyces boulardii 250 MG CAP PO SCH (10:20)
[2020-08-14] MEDS: Escitalopram Oxalate 20 mg Tablet PO SCH (10:21)
[2020-08-14] MEDS: Ascorbic Acid 500 mg Chewable Tablet PO SCH (10:21)
[2020-08-14] MEDS: Clopidogrel Bisulfate 75 MG TAB PO SCH (10:22)
[2020-08-14] MEDS: Calcium Carbonate 600 MG + Vit D TAB PO SCH ×2 (10:22→20:23)
[2020-08-14] MEDS: Carvedilol 3.125 MG TAB PO SCH ×2 (10:22→20:23)
[2020-08-14] MEDS: Mometasone/Formoterol 60 PUFF AER INH SCH ×2 (10:31→20:23)
[2020-08-14] MEDS: Nystatin Powder 15 GM BOT TOP SCH ×2 (10:31→20:24)
[2020-08-14] MEDS: Metoclopramide HCl 10 MG/2 ML VIAL IVP PRN (12:06)
[2020-08-14] MEDS: Acetaminophen 325 MG TAB PO PRN (12:06)
[2020-08-14] MEDS: Morphine 2 MG/ML VIAL SLOW IVP PRN (13:17)
[2020-08-14] MEDS: Polyethylene Glycol 3350 17 GM Packet PO SCH (18:35)
[2020-08-14] MEDS: Rosuvastatin 10 MG TAB PO SCH (20:23)
[2020-08-14] MEDS: Mirtazapine 15 MG TAB PO SCH (20:23)
[2020-08-15] MEDS: Meropenem 1 GM in Sodium Chloride 0.9% 100 ML IVPB SCH ×3 (04:18→20:03)
[2020-08-15 06:04] LABS: Hemoglobin 10.3 g/dL (14.0-18.0); Mean Corpuscular HGB CONC 31.7 g/dL (32.0-36.0); Mean Corpuscular Hemoglobin 28.2 pg (27.0-31.0); Mean Corpuscular Volume 88.9 fL (78.0-98.0); Mean Platelet Volume 6.2 fL (7.4-10.4); Platelet Count 228 thou/uL (130-400); RBC Distribution Width 15.5 % (11.5-14.5); Red Blood Cell (RBC) Count 3.66 mill/uL (4.70-6.10)
[2020-08-15 06:28] LABS: ALT (SGPT) 37 U/L (8-55); AST (SGOT) 29 U/L (5-34); Albumin 1.7 g/dL (3.4-4.8); Alkaline Phosphatase 124 U/L (40-110); Anion Gap 12 mmol/L (10-20); BUN (Urea Nitrogen) 12 mg/dL (8.4-25.7); Bilirubin, Total 0.5 mg/dL (0.2-1.2); Calc. Creatinine Clearance 171 mL/min (70-130); Calcium 7.6 mg/dL (7.8-10.44); Carbon Dioxide 20 mmol/L (23-31); Chloride 111 mmol/L (98-107); Glucose 77 mg/dL (80-115); Potassium 3.9 mmol/L (3.5-5.1); Protein, Total 5.7 g/dL (5.8-8.1); Sodium 139 mmol/L (136-145)
[2020-08-15 06:48] LABS: Band 4 % (5-11); Eosinophils 2 % (0-10); Lymphocytes 22 % (21-51); MDiff Complete? YES; Monocytes 12 % (0-10); Neutrophil 60 % (42-75); Platelet Morphology Comment Appears Adequate; RBC Morphology Normal
[2020-08-15] MEDS: Ascorbic Acid 500 mg Chewable Tablet PO SCH (09:22)
[2020-08-15] MEDS: Aspirin 81 mg Enteric Coated Tablet PO SCH (09:22)
[2020-08-15] MEDS: Potassium Chloride 20 MEQ TAB PO SCH ×2 (09:24→16:59)
[2020-08-15] MEDS: Calcium Carbonate 600 MG + Vit D TAB PO SCH ×2 (09:24→20:03)
[2020-08-15] MEDS: Saccharomyces boulardii 250 MG CAP PO SCH (09:24)
[2020-08-15] MEDS: Escitalopram Oxalate 20 mg Tablet PO SCH (09:25)
[2020-08-15] MEDS: Carvedilol 3.125 MG TAB PO SCH ×2 (09:26→20:03)
[2020-08-15] MEDS: Clopidogrel Bisulfate 75 MG TAB PO SCH (09:27)
[2020-08-15] MEDS: Nystatin Powder 15 GM BOT TOP SCH ×2 (09:28→20:06)
[2020-08-15] MEDS: Mometasone/Formoterol 60 PUFF AER INH SCH ×2 (09:28→20:06)
[2020-08-15] MEDS: Polyethylene Glycol 3350 17 GM Packet PO SCH (09:32)
[2020-08-15] MEDS: traMADol HCl 50 MG TAB PO PRN ×2 (14:23→20:04)
[2020-08-15] MEDS: Rosuvastatin 10 MG TAB PO SCH (20:03)
[2020-08-15] MEDS: Mirtazapine 15 MG TAB PO SCH (20:04)
[2020-08-16] MEDS: Meropenem 1 GM in Sodium Chloride 0.9% 100 ML IVPB SCH ×3 (03:58→20:36)
[2020-08-16] MEDS: traMADol HCl 50 MG TAB PO PRN ×3 (09:09→20:50)
[2020-08-16] MEDS: Calcium Carbonate 600 MG + Vit D TAB PO SCH ×2 (09:10→20:37)
[2020-08-16] MEDS: Saccharomyces boulardii 250 MG CAP PO SCH (09:10)
[2020-08-16] MEDS: Escitalopram Oxalate 20 mg Tablet PO SCH (09:11)
[2020-08-16] MEDS: Potassium Chloride 20 MEQ TAB PO SCH ×2 (09:11→17:04)
[2020-08-16] MEDS: Aspirin 81 mg Enteric Coated Tablet PO SCH (09:12)
[2020-08-16] MEDS: Ascorbic Acid 500 mg Chewable Tablet PO SCH (09:12)
[2020-08-16] MEDS: Carvedilol 3.125 MG TAB PO SCH ×2 (09:13→20:37)
[2020-08-16] MEDS: Clopidogrel Bisulfate 75 MG TAB PO SCH (09:13)
[2020-08-16] MEDS: Mometasone/Formoterol 60 PUFF AER INH SCH ×2 (09:15→20:38)
[2020-08-16] MEDS: Nystatin Powder 15 GM BOT TOP SCH ×2 (09:17→20:52)
[2020-08-16] MEDS: Polyethylene Glycol 3350 17 GM Packet PO SCH (12:28)
[2020-08-16] MEDS: Rosuvastatin 10 MG TAB PO SCH (20:37)
[2020-08-16] MEDS: Mirtazapine 15 MG TAB PO SCH (20:37)
[2020-08-17] MEDS: Meropenem 1 GM in Sodium Chloride 0.9% 100 ML IVPB SCH ×3 (03:41→20:28)
[2020-08-17] MEDS: traMADol HCl 50 MG TAB PO PRN ×3 (04:17→13:01)
[2020-08-17] MEDS: Calcium Carbonate 600 MG + Vit D TAB PO SCH ×2 (08:09→20:28)
[2020-08-17] MEDS: Potassium Chloride 20 MEQ TAB PO SCH ×2 (08:09→16:58)
[2020-08-17] MEDS: Saccharomyces boulardii 250 MG CAP PO SCH (08:09)
[2020-08-17] MEDS: Ascorbic Acid 500 mg Chewable Tablet PO SCH (08:10)
[2020-08-17] MEDS: Escitalopram Oxalate 20 mg Tablet PO SCH (08:10)
[2020-08-17] MEDS: Clopidogrel Bisulfate 75 MG TAB PO SCH (08:11)
[2020-08-17] MEDS: Carvedilol 3.125 MG TAB PO SCH ×2 (08:11→20:28)
[2020-08-17] MEDS: Aspirin 81 mg Enteric Coated Tablet PO SCH (08:11)
[2020-08-17] MEDS: Nystatin Powder 15 GM BOT TOP SCH ×2 (08:12→20:47)
[2020-08-17] MEDS: Mometasone/Formoterol 60 PUFF AER INH SCH ×2 (08:12→20:29)
[2020-08-17] MEDS: Polyethylene Glycol 3350 17 GM Packet PO SCH (08:17)
[2020-08-17] MEDS: Morphine 2 MG/ML VIAL SLOW IVP PRN (14:14)
[2020-08-17] MEDS: Metoclopramide HCl 10 MG/2 ML VIAL IVP PRN (14:28)
[2020-08-17] MEDS: Rosuvastatin 10 MG TAB PO SCH (20:28)
[2020-08-17] MEDS: Mirtazapine 15 MG TAB PO SCH (20:29)
[2020-08-18] MEDS: Meropenem 1 GM in Sodium Chloride 0.9% 100 ML IVPB SCH ×3 (05:04→20:06)
[2020-08-18] MEDS: Potassium Chloride 20 MEQ TAB PO SCH ×2 (08:02→17:12)
[2020-08-18] MEDS: Escitalopram Oxalate 20 mg Tablet PO SCH (08:02)
[2020-08-18] MEDS: Saccharomyces boulardii 250 MG CAP PO SCH (08:03)
[2020-08-18] MEDS: Ascorbic Acid 500 mg Chewable Tablet PO SCH (08:03)
[2020-08-18] MEDS: Clopidogrel Bisulfate 75 MG TAB PO SCH (08:03)
[2020-08-18] MEDS: Aspirin 81 mg Enteric Coated Tablet PO SCH (08:03)
[2020-08-18] MEDS: Carvedilol 3.125 MG TAB PO SCH ×2 (08:03→20:09)
[2020-08-18] MEDS: Calcium Carbonate 600 MG + Vit D TAB PO SCH ×2 (08:03→20:07)
[2020-08-18] MEDS: Mometasone/Formoterol 60 PUFF AER INH SCH ×2 (08:04→20:13)
[2020-08-18] MEDS: Nystatin Powder 15 GM BOT TOP SCH ×2 (08:05→20:13)
[2020-08-18] MEDS: Polyethylene Glycol 3350 17 GM Packet PO SCH (08:07)
[2020-08-18] MEDS: traMADol HCl 50 MG TAB PO PRN ×3 (08:09→20:27)
[2020-08-18] MEDS: Metoclopramide HCl 10 MG/2 ML VIAL IVP PRN (13:09)
[2020-08-18] MEDS: Milk Of Magnesia 30 ML UDCUP PO PRN (15:38)
[2020-08-18] MEDS: Rosuvastatin 10 MG TAB PO SCH (20:09)
[2020-08-18] MEDS: Mirtazapine 15 MG TAB PO SCH (20:13)
[2020-08-19] MEDS: Meropenem 1 GM in Sodium Chloride 0.9% 100 ML IVPB SCH ×3 (03:50→20:22)
[2020-08-19] MEDS: Calcium Carbonate 600 MG + Vit D TAB PO SCH ×2 (08:47→20:22)
[2020-08-19] MEDS: Potassium Chloride 20 MEQ TAB PO SCH ×2 (08:47→17:36)
[2020-08-19] MEDS: Polyethylene Glycol 3350 17 GM Packet PO SCH ×2 (08:47→08:59)
[2020-08-19] MEDS: Aspirin 81 mg Enteric Coated Tablet PO SCH (08:47)
[2020-08-19] MEDS: Saccharomyces boulardii 250 MG CAP PO SCH (08:48)
[2020-08-19] MEDS: Escitalopram Oxalate 20 mg Tablet PO SCH (08:48)
[2020-08-19] MEDS: Ascorbic Acid 500 mg Chewable Tablet PO SCH (08:49)
[2020-08-19] MEDS: Clopidogrel Bisulfate 75 MG TAB PO SCH (08:49)
[2020-08-19] MEDS: Carvedilol 3.125 MG TAB PO SCH ×2 (08:50→20:22)
[2020-08-19] MEDS: Mometasone/Formoterol 60 PUFF AER INH SCH ×2 (08:50→20:59)
[2020-08-19] MEDS: Nystatin Powder 15 GM BOT TOP SCH ×2 (08:51→21:00)
[2020-08-19] MEDS: traMADol HCl 50 MG TAB PO PRN (09:34)
[2020-08-19] MEDS: Morphine 2 MG/ML VIAL SLOW IVP PRN (09:54)
[2020-08-19] MEDS: Milk Of Magnesia 30 ML UDCUP PO PRN (17:44)
[2020-08-19] MEDS: Mirtazapine 15 MG TAB PO SCH (20:22)
[2020-08-19] MEDS: Rosuvastatin 10 MG TAB PO SCH (20:22)
[2020-08-20] MEDS: Milk Of Magnesia 30 ML UDCUP PO PRN ×2 (01:53→09:26)
[2020-08-20] MEDS: Meropenem 1 GM in Sodium Chloride 0.9% 100 ML IVPB SCH ×3 (03:56→19:57)
[2020-08-20] MEDS: Escitalopram Oxalate 20 mg Tablet PO SCH (09:15)
[2020-08-20] MEDS: Saccharomyces boulardii 250 MG CAP PO SCH (09:15)
[2020-08-20] MEDS: Potassium Chloride 20 MEQ TAB PO SCH ×2 (09:16→17:11)
[2020-08-20] MEDS: Calcium Carbonate 600 MG + Vit D TAB PO SCH ×2 (09:16→19:57)
[2020-08-20] MEDS: Ascorbic Acid 500 mg Chewable Tablet PO SCH (09:17)
[2020-08-20] MEDS: Carvedilol 3.125 MG TAB PO SCH ×2 (09:17→19:57)
[2020-08-20] MEDS: Clopidogrel Bisulfate 75 MG TAB PO SCH (09:17)
[2020-08-20] MEDS: Aspirin 81 mg Enteric Coated Tablet PO SCH (09:17)
[2020-08-20] MEDS: Metoclopramide HCl 10 MG/2 ML VIAL IVP PRN (09:19)
[2020-08-20] MEDS: Mometasone/Formoterol 60 PUFF AER INH SCH ×2 (09:24→20:03)
[2020-08-20] MEDS: Nystatin Powder 15 GM BOT TOP SCH ×2 (09:26→20:04)
[2020-08-20] MEDS: Polyethylene Glycol 3350 17 GM Packet PO SCH (09:31)
[2020-08-20] MEDS: Mirtazapine 15 MG TAB PO SCH (19:56)
[2020-08-20] MEDS: Rosuvastatin 10 MG TAB PO SCH (19:56)
[2020-08-21] MEDS: traMADol HCl 50 MG TAB PO PRN ×3 (00:05→16:06)
[2020-08-21] MEDS: Meropenem 1 GM in Sodium Chloride 0.9% 100 ML IVPB SCH ×3 (04:02→20:39)
[2020-08-21] MEDS: Calcium Carbonate 600 MG + Vit D TAB PO SCH ×2 (09:33→20:40)
[2020-08-21] MEDS: Ascorbic Acid 500 mg Chewable Tablet PO SCH (09:33)
[2020-08-21] MEDS: Aspirin 81 mg Enteric Coated Tablet PO SCH (09:34)
[2020-08-21] MEDS: Potassium Chloride 20 MEQ TAB PO SCH ×2 (09:34→17:23)
[2020-08-21] MEDS: Saccharomyces boulardii 250 MG CAP PO SCH (09:34)
[2020-08-21] MEDS: Clopidogrel Bisulfate 75 MG TAB PO SCH (09:34)
[2020-08-21] MEDS: Carvedilol 3.125 MG TAB PO SCH ×2 (09:35→20:40)
[2020-08-21] MEDS: Escitalopram Oxalate 20 mg Tablet PO SCH (09:35)
[2020-08-21] MEDS: Nystatin Powder 15 GM BOT TOP SCH ×2 (09:38→20:43)
[2020-08-21] MEDS: Mometasone/Formoterol 60 PUFF AER INH SCH ×2 (09:39→20:42)
[2020-08-21] MEDS: Polyethylene Glycol 3350 17 GM Packet PO SCH (10:46)
[2020-08-21] MEDS: Morphine 2 MG/ML VIAL SLOW IVP PRN (13:09)
[2020-08-21] MEDS: Milk Of Magnesia 30 ML UDCUP PO PRN (16:07)
[2020-08-21] MEDS: Mirtazapine 15 MG TAB PO SCH (20:40)
[2020-08-21] MEDS: Rosuvastatin 10 MG TAB PO SCH (20:40)
[2020-08-22] MEDS: Meropenem 1 GM in Sodium Chloride 0.9% 100 ML IVPB SCH ×3 (04:01→20:37)
[2020-08-22 05:21] LABS: #Basophils 0.1 thou/uL (0.0-0.2); #Eosinphils 0.3 thou/uL (0.0-0.7); #Lymphocytes 1.4 thou/uL (1.20-3.40); #Monocytes 0.9 thou/uL (0.11-0.59); #Neutrophils 3.8 thou/uL (1.40-6.50); %Basophils 0.8 % (0.0-1.0); %Eosinophils 5.1 % (0.0-10.0); %Lymphocytes 21.9 % (21.0-51.0); %Monocytes 14.1 % (0.0-10.0); %Neutrophils 58.1 % (42.0-75.0); Hemoglobin 10.5 g/dL (14.0-18.0); Mean Corpuscular HGB CONC 31.1 g/dL (32.0-36.0); Mean Corpuscular Hemoglobin 28.2 pg (27.0-31.0); Mean Corpuscular Volume 90.7 fL (78.0-98.0); Mean Platelet Volume 5.9 fL (7.4-10.4); Platelet Count 206 thou/uL (130-400); RBC Distribution Width 16.3 % (11.5-14.5); Red Blood Cell (RBC) Count 3.73 mill/uL (4.70-6.10); White Blood Cell (WBC) Count 6.5 thou/uL (4.8-10.8)
[2020-08-22] MEDS: Acetaminophen 325 MG TAB PO PRN (05:26)
[2020-08-22 05:36] LABS: ALT (SGPT) 21 U/L (8-55); AST (SGOT) 22 U/L (5-34); Albumin 1.6 g/dL (3.4-4.8); Alkaline Phosphatase 121 U/L (40-110); Anion Gap 12 mmol/L (10-20); BUN (Urea Nitrogen) 10 mg/dL (8.4-25.7); Bilirubin, Total 0.5 mg/dL (0.2-1.2); Calc. Creatinine Clearance 171 mL/min (70-130); Calcium 7.3 mg/dL (7.8-10.44); Carbon Dioxide 21 mmol/L (23-31); Chloride 110 mmol/L (98-107); Globulin 3.6 g/dL (2.4-3.5); Glucose 79 mg/dL (80-115); Potassium 4.2 mmol/L (3.5-5.1); Protein, Total 5.2 g/dL (5.8-8.1); Sodium 139 mmol/L (136-145)
[2020-08-22] MEDS: Calcium Carbonate 600 MG + Vit D TAB PO SCH ×2 (09:12→20:36)
[2020-08-22] MEDS: Saccharomyces boulardii 250 MG CAP PO SCH (09:13)
[2020-08-22] MEDS: Ascorbic Acid 500 mg Chewable Tablet PO SCH (09:13)
[2020-08-22] MEDS: Potassium Chloride 20 MEQ TAB PO SCH ×2 (09:13→16:02)
[2020-08-22] MEDS: Escitalopram Oxalate 20 mg Tablet PO SCH (09:14)
[2020-08-22] MEDS: Aspirin 81 mg Enteric Coated Tablet PO SCH (09:16)
[2020-08-22] MEDS: Clopidogrel Bisulfate 75 MG TAB PO SCH (09:16)
[2020-08-22] MEDS: Carvedilol 3.125 MG TAB PO SCH ×2 (09:16→20:36)
[2020-08-22] MEDS: Mometasone/Formoterol 60 PUFF AER INH SCH ×2 (09:17→20:45)
[2020-08-22] MEDS: Nystatin Powder 15 GM BOT TOP SCH ×2 (09:20→20:45)
[2020-08-22] MEDS: Polyethylene Glycol 3350 17 GM Packet PO SCH (09:21)
[2020-08-22] MEDS: Milk Of Magnesia 30 ML UDCUP PO PRN (17:36)
[2020-08-22] MEDS: Rosuvastatin 10 MG TAB PO SCH (20:36)
[2020-08-22] MEDS: traMADol HCl 50 MG TAB PO PRN (20:36)
[2020-08-22] MEDS: Mirtazapine 15 MG TAB PO SCH (20:36)
[2020-08-23] MEDS: Meropenem 1 GM in Sodium Chloride 0.9% 100 ML IVPB SCH ×3 (04:01→20:27)
[2020-08-23] MEDS: Potassium Chloride 20 MEQ TAB PO SCH ×2 (09:31→17:05)
[2020-08-23] MEDS: Saccharomyces boulardii 250 MG CAP PO SCH (09:32)
[2020-08-23] MEDS: Clopidogrel Bisulfate 75 MG TAB PO SCH (09:32)
[2020-08-23] MEDS: Ascorbic Acid 500 mg Chewable Tablet PO SCH (09:32)
[2020-08-23] MEDS: Escitalopram Oxalate 20 mg Tablet PO SCH (09:32)
[2020-08-23] MEDS: Calcium Carbonate 600 MG + Vit D TAB PO SCH ×2 (09:32→20:36)
[2020-08-23] MEDS: Carvedilol 3.125 MG TAB PO SCH ×2 (09:33→20:37)
[2020-08-23] MEDS: Nystatin Powder 15 GM BOT TOP SCH ×2 (09:33→20:44)
[2020-08-23] MEDS: Aspirin 81 mg Enteric Coated Tablet PO SCH (09:33)
[2020-08-23] MEDS: Mometasone/Formoterol 60 PUFF AER INH SCH ×2 (09:36→20:44)
[2020-08-23] MEDS: Polyethylene Glycol 3350 17 GM Packet PO SCH (11:26)
[2020-08-23] MEDS: Rosuvastatin 10 MG TAB PO SCH (20:36)
[2020-08-23] MEDS: Mirtazapine 15 MG TAB PO SCH (20:37)
[2020-08-23] MEDS: traMADol HCl 50 MG TAB PO PRN (20:38)
[2020-08-24] MEDS: Meropenem 1 GM in Sodium Chloride 0.9% 100 ML IVPB SCH ×3 (04:06→20:44)
[2020-08-24 05:15] LABS: Potassium 4.1 mmol/L (3.5-5.1)
[2020-08-24] MEDS: traMADol HCl 50 MG TAB PO PRN ×3 (05:18→18:08)
[2020-08-24] MEDS: Ascorbic Acid 500 mg Chewable Tablet PO SCH (09:22)
[2020-08-24] MEDS: Escitalopram Oxalate 20 mg Tablet PO SCH (09:22)
[2020-08-24] MEDS: Carvedilol 3.125 MG TAB PO SCH ×2 (09:23→20:44)
[2020-08-24] MEDS: Potassium Chloride 20 MEQ TAB PO SCH ×2 (09:23→17:00)
[2020-08-24] MEDS: Saccharomyces boulardii 250 MG CAP PO SCH (09:23)
[2020-08-24] MEDS: Aspirin 81 mg Enteric Coated Tablet PO SCH (09:24)
[2020-08-24] MEDS: Calcium Carbonate 600 MG + Vit D TAB PO SCH ×2 (09:24→20:44)
[2020-08-24] MEDS: Clopidogrel Bisulfate 75 MG TAB PO SCH (09:24)
[2020-08-24] MEDS: Nystatin Powder 15 GM BOT TOP SCH ×2 (09:24→21:00)
[2020-08-24] MEDS: Mometasone/Formoterol 60 PUFF AER INH SCH ×2 (09:26→20:59)
[2020-08-24] MEDS: Morphine 2 MG/ML VIAL SLOW IVP PRN (09:28)
[2020-08-24] MEDS: Polyethylene Glycol 3350 17 GM Packet PO SCH (09:36)
[2020-08-24] MEDS: Metoclopramide HCl 10 MG/2 ML VIAL IVP PRN (11:56)
[2020-08-24] MEDS: Rosuvastatin 10 MG TAB PO SCH (20:44)
[2020-08-24] MEDS: Mirtazapine 15 MG TAB PO SCH (20:44)
[2020-08-25] MEDS: Meropenem 1 GM in Sodium Chloride 0.9% 100 ML IVPB SCH ×3 (04:19→20:35)
[2020-08-25] MEDS: traMADol HCl 50 MG TAB PO PRN ×3 (04:55→15:24)
[2020-08-25] MEDS ORDERED: EPINEPHrine 1 MG/ML AMP ONE (07:13)
[2020-08-25] MEDS ORDERED: EPINEPHrine 1 MG/10 ML Abboject SYRINGE ONE (07:13)
[2020-08-25] MEDS ORDERED: Calcium Chloride 1 GM/10 ML Abboject SYRINGE ONE (07:20)
[2020-08-25] MEDS ORDERED: Sodium Bicarb 50 MEQ/50 ML Abboject 8.4% SYRINGE ONE (07:31)
[2020-08-25] MEDS: Aspirin 81 mg Enteric Coated Tablet PO SCH (08:17)
[2020-08-25] MEDS: Calcium Carbonate 600 MG + Vit D TAB PO SCH ×2 (08:17→20:35)
[2020-08-25] MEDS: Potassium Chloride 20 MEQ TAB PO SCH ×2 (08:17→17:28)
[2020-08-25] MEDS: Ascorbic Acid 500 mg Chewable Tablet PO SCH (08:18)
[2020-08-25] MEDS: Clopidogrel Bisulfate 75 MG TAB PO SCH (08:18)
[2020-08-25] MEDS: Carvedilol 3.125 MG TAB PO SCH ×2 (08:18→20:35)
[2020-08-25] MEDS: Escitalopram Oxalate 20 mg Tablet PO SCH (08:18)
[2020-08-25] MEDS: Saccharomyces boulardii 250 MG CAP PO SCH (08:18)
[2020-08-25] MEDS: Polyethylene Glycol 3350 17 GM Packet PO SCH (08:19)
[2020-08-25] MEDS: Nystatin Powder 15 GM BOT TOP SCH ×2 (08:36→20:37)
[2020-08-25] MEDS: Mometasone/Formoterol 60 PUFF AER INH SCH ×2 (08:37→20:37)
[2020-08-25] MEDS: Milk Of Magnesia 30 ML UDCUP PO PRN (11:26)
[2020-08-25] MEDS: Acetaminophen 325 MG TAB PO PRN (17:35)
[2020-08-25] MEDS: Mirtazapine 15 MG TAB PO SCH (20:35)
[2020-08-25] MEDS: Rosuvastatin 10 MG TAB PO SCH (20:35)
[2020-08-26] MEDS: Meropenem 1 GM in Sodium Chloride 0.9% 100 ML IVPB SCH ×3 (04:28→20:32)
[2020-08-26] MEDS: Nystatin Powder 15 GM BOT TOP SCH ×2 (09:05→20:34)
[2020-08-26] MEDS: Calcium Carbonate 600 MG + Vit D TAB PO SCH ×2 (09:10→20:32)
[2020-08-26] MEDS: Potassium Chloride 20 MEQ TAB PO SCH ×2 (09:10→16:26)
[2020-08-26] MEDS: Aspirin 81 mg Enteric Coated Tablet PO SCH (09:10)
[2020-08-26] MEDS: Clopidogrel Bisulfate 75 MG TAB PO SCH (09:10)
[2020-08-26] MEDS: Mometasone/Formoterol 60 PUFF AER INH SCH ×2 (09:10→20:51)
[2020-08-26] MEDS: Carvedilol 3.125 MG TAB PO SCH ×2 (09:10→20:32)
[2020-08-26] MEDS: Ascorbic Acid 500 mg Chewable Tablet PO SCH (09:10)
[2020-08-26] MEDS: Escitalopram Oxalate 20 mg Tablet PO SCH (09:11)
[2020-08-26] MEDS: Saccharomyces boulardii 250 MG CAP PO SCH (09:11)
[2020-08-26] MEDS: traMADol HCl 50 MG TAB PO PRN ×2 (09:11→13:22)
[2020-08-26] MEDS: Morphine 2 MG/ML VIAL SLOW IVP PRN (13:22)
[2020-08-26] MEDS: Polyethylene Glycol 3350 17 GM Packet PO SCH (13:28)
[2020-08-26] MEDS: Milk Of Magnesia 30 ML UDCUP PO PRN (16:27)
[2020-08-26] MEDS: Senokot 8.6 MG TAB PO PRN (18:32)
[2020-08-26] MEDS: Mirtazapine 15 MG TAB PO SCH (20:32)
[2020-08-26] MEDS: Rosuvastatin 10 MG TAB PO SCH (20:32)
[2020-08-27] MEDS: traMADol HCl 50 MG TAB PO PRN ×2 (02:09→20:33)
[2020-08-27] MEDS: Meropenem 1 GM in Sodium Chloride 0.9% 100 ML IVPB SCH ×3 (04:13→19:59)
[2020-08-27] MEDS: Nystatin Powder 15 GM BOT TOP SCH ×2 (09:30→20:05)
[2020-08-27] MEDS: Ascorbic Acid 500 mg Chewable Tablet PO SCH (09:35)
[2020-08-27] MEDS: Potassium Chloride 20 MEQ TAB PO SCH ×2 (09:36→17:38)
[2020-08-27] MEDS: Clopidogrel Bisulfate 75 MG TAB PO SCH (09:37)
[2020-08-27] MEDS: Saccharomyces boulardii 250 MG CAP PO SCH (09:37)
[2020-08-27] MEDS: Calcium Carbonate 600 MG + Vit D TAB PO SCH ×2 (09:37→20:04)
[2020-08-27] MEDS: Aspirin 81 mg Enteric Coated Tablet PO SCH (09:37)
[2020-08-27] MEDS: Carvedilol 3.125 MG TAB PO SCH ×2 (09:37→20:04)
[2020-08-27] MEDS: Escitalopram Oxalate 20 mg Tablet PO SCH (09:37)
[2020-08-27] MEDS: Mometasone/Formoterol 60 PUFF AER INH SCH ×2 (09:39→20:04)
[2020-08-27] MEDS: Polyethylene Glycol 3350 17 GM Packet PO SCH (09:42)
[2020-08-27] MEDS: Mirtazapine 15 MG TAB PO SCH (20:04)
[2020-08-27] MEDS: Rosuvastatin 10 MG TAB PO SCH (20:04)
[2020-08-28] MEDS: Meropenem 1 GM in Sodium Chloride 0.9% 100 ML IVPB SCH ×3 (04:28→21:07)
[2020-08-28] MEDS: Morphine 2 MG/ML VIAL SLOW IVP PRN (10:51)
[2020-08-28] MEDS: Mometasone/Formoterol 60 PUFF AER INH SCH ×2 (10:52→21:10)
[2020-08-28] MEDS: Aspirin 81 mg Enteric Coated Tablet PO SCH (10:55)
[2020-08-28] MEDS: Calcium Carbonate 600 MG + Vit D TAB PO SCH ×2 (10:55→21:09)
[2020-08-28] MEDS: Potassium Chloride 20 MEQ TAB PO SCH ×2 (10:55→17:16)
[2020-08-28] MEDS: Clopidogrel Bisulfate 75 MG TAB PO SCH (10:55)
[2020-08-28] MEDS: Ascorbic Acid 500 mg Chewable Tablet PO SCH (10:55)
[2020-08-28] MEDS: Carvedilol 3.125 MG TAB PO SCH ×2 (10:56→21:10)
[2020-08-28] MEDS: Saccharomyces boulardii 250 MG CAP PO SCH (10:56)
[2020-08-28] MEDS: Escitalopram Oxalate 20 mg Tablet PO SCH (10:56)
[2020-08-28] MEDS: Polyethylene Glycol 3350 17 GM Packet PO SCH (10:57)
[2020-08-28] MEDS: Nystatin Powder 15 GM BOT TOP SCH ×2 (10:58→21:13)
[2020-08-28] MEDS: traMADol HCl 50 MG TAB PO PRN (11:11)
[2020-08-28] MEDS: Mirtazapine 15 MG TAB PO SCH (21:10)
[2020-08-28] MEDS: Rosuvastatin 10 MG TAB PO SCH (21:10)
[2020-08-29] MEDS: Meropenem 1 GM in Sodium Chloride 0.9% 100 ML IVPB SCH ×3 (04:22→20:40)
[2020-08-29 05:55] LABS: #Basophils 0.1 thou/uL (0.0-0.2); #Eosinphils 0.2 thou/uL (0.0-0.7); #Lymphocytes 1.5 thou/uL (1.20-3.40); #Monocytes 0.8 thou/uL (0.11-0.59); #Neutrophils 4.3 thou/uL (1.40-6.50); %Eosinophils 2.6 % (0.0-10.0); %Lymphocytes 21.4 % (21.0-51.0); %Monocytes 11.6 % (0.0-10.0); %Neutrophils 63.4 % (42.0-75.0); Hemoglobin 10.2 g/dL (14.0-18.0); Mean Corpuscular HGB CONC 31.3 g/dL (32.0-36.0); Mean Corpuscular Hemoglobin 28.7 pg (27.0-31.0); Mean Corpuscular Volume 91.7 fL (78.0-98.0); Mean Platelet Volume 5.4 fL (7.4-10.4); Platelet Count 271 thou/uL (130-400); RBC Distribution Width 16.6 % (11.5-14.5); Red Blood Cell (RBC) Count 3.57 mill/uL (4.70-6.10); White Blood Cell (WBC) Count 6.8 thou/uL (4.8-10.8)
[2020-08-29 06:03] LABS: ALT (SGPT) 19 U/L (8-55); AST (SGOT) 22 U/L (5-34); Albumin 1.7 g/dL (3.4-4.8); Alkaline Phosphatase 113 U/L (40-110); Anion Gap 10 mmol/L (10-20); BUN (Urea Nitrogen) 12 mg/dL (8.4-25.7); Bilirubin, Total 0.4 mg/dL (0.2-1.2); Calc. Creatinine Clearance 161 mL/min (70-130); Calcium 7.6 mg/dL (7.8-10.44); Carbon Dioxide 21 mmol/L (23-31); Chloride 113 mmol/L (98-107); Globulin 3.4 g/dL (2.4-3.5); Glucose 88 mg/dL (80-115); Potassium 4.1 mmol/L (3.5-5.1); Protein, Total 5.1 g/dL (5.8-8.1); Sodium 140 mmol/L (136-145)
[2020-08-29] MEDS: Senokot 8.6 MG TAB PO PRN (09:09)
[2020-08-29] MEDS: Ascorbic Acid 500 mg Chewable Tablet PO SCH (09:09)
[2020-08-29] MEDS: Aspirin 81 mg Enteric Coated Tablet PO SCH (09:10)
[2020-08-29] MEDS: Calcium Carbonate 600 MG + Vit D TAB PO SCH ×2 (09:10→20:42)
[2020-08-29] MEDS: Escitalopram Oxalate 20 mg Tablet PO SCH (09:10)
[2020-08-29] MEDS: Saccharomyces boulardii 250 MG CAP PO SCH (09:10)
[2020-08-29] MEDS: Clopidogrel Bisulfate 75 MG TAB PO SCH (09:11)
[2020-08-29] MEDS: Mometasone/Formoterol 60 PUFF AER INH SCH ×2 (09:11→20:43)
[2020-08-29] MEDS: Carvedilol 3.125 MG TAB PO SCH ×2 (09:11→20:42)
[2020-08-29] MEDS: Potassium Chloride 20 MEQ TAB PO SCH ×2 (09:11→16:15)
[2020-08-29] MEDS: Nystatin Powder 15 GM BOT TOP SCH ×2 (09:13→20:44)
[2020-08-29] MEDS: Polyethylene Glycol 3350 17 GM Packet PO SCH (09:17)
[2020-08-29] MEDS: traMADol HCl 50 MG TAB PO PRN (17:00)
[2020-08-29] MEDS: Mirtazapine 15 MG TAB PO SCH (20:42)
[2020-08-29] MEDS: Rosuvastatin 10 MG TAB PO SCH (20:42)
[2020-08-30] MEDS: Meropenem 1 GM in Sodium Chloride 0.9% 100 ML IVPB SCH ×3 (04:13→21:59)
[2020-08-30] MEDS: Aspirin 81 mg Enteric Coated Tablet PO SCH (08:48)
[2020-08-30] MEDS: Ascorbic Acid 500 mg Chewable Tablet PO SCH (08:49)
[2020-08-30] MEDS: Calcium Carbonate 600 MG + Vit D TAB PO SCH ×2 (08:49→22:00)
[2020-08-30] MEDS: Clopidogrel Bisulfate 75 MG TAB PO SCH (08:49)
[2020-08-30] MEDS: Carvedilol 3.125 MG TAB PO SCH ×2 (08:49→21:59)
[2020-08-30] MEDS: Potassium Chloride 20 MEQ TAB PO SCH ×2 (08:49→16:53)
[2020-08-30] MEDS: Saccharomyces boulardii 250 MG CAP PO SCH (08:49)
[2020-08-30] MEDS: Escitalopram Oxalate 20 mg Tablet PO SCH (08:50)
[2020-08-30] MEDS: Nystatin Powder 15 GM BOT TOP SCH ×2 (08:53→22:07)
[2020-08-30] MEDS: Mometasone/Formoterol 60 PUFF AER INH SCH ×2 (08:54→22:07)
[2020-08-30] MEDS: Polyethylene Glycol 3350 17 GM Packet PO SCH (09:01)
[2020-08-30] MEDS: traMADol HCl 50 MG TAB PO PRN (14:11)
[2020-08-30] MEDS: Milk Of Magnesia 30 ML UDCUP PO PRN (14:15)
[2020-08-30] MEDS: Senokot 8.6 MG TAB PO PRN (14:15)
[2020-08-30] MEDS: Mirtazapine 15 MG TAB PO SCH (22:00)
[2020-08-30] MEDS: Rosuvastatin 10 MG TAB PO SCH (22:00)
[2020-08-31] MEDS: Meropenem 1 GM in Sodium Chloride 0.9% 100 ML IVPB SCH ×3 (04:12→20:36)
[2020-08-31] MEDS: traMADol HCl 50 MG TAB PO PRN ×2 (04:55→12:15)
[2020-08-31] MEDS: Potassium Chloride 20 MEQ TAB PO SCH ×2 (09:06→17:00)
[2020-08-31] MEDS: Ascorbic Acid 500 mg Chewable Tablet PO SCH (09:07)
[2020-08-31] MEDS: Saccharomyces boulardii 250 MG CAP PO SCH (09:07)
[2020-08-31] MEDS: Aspirin 81 mg Enteric Coated Tablet PO SCH (09:07)
[2020-08-31] MEDS: Clopidogrel Bisulfate 75 MG TAB PO SCH (09:07)
[2020-08-31] MEDS: Escitalopram Oxalate 20 mg Tablet PO SCH (09:07)
[2020-08-31] MEDS: Calcium Carbonate 600 MG + Vit D TAB PO SCH ×2 (09:07→20:36)
[2020-08-31] MEDS: Carvedilol 3.125 MG TAB PO SCH ×2 (09:07→20:36)
[2020-08-31] MEDS: Mometasone/Formoterol 60 PUFF AER INH SCH ×2 (09:08→20:39)
[2020-08-31] MEDS: Nystatin Powder 15 GM BOT TOP SCH ×2 (09:08→20:38)
[2020-08-31] MEDS: Polyethylene Glycol 3350 17 GM Packet PO SCH (09:13)
[2020-08-31] MEDS: Morphine 2 MG/ML VIAL SLOW IVP PRN (14:20)
[2020-08-31] MEDS: Mirtazapine 15 MG TAB PO SCH (20:36)
[2020-08-31] MEDS: Rosuvastatin 10 MG TAB PO SCH (20:36)
[2020-09-01] MEDS: Meropenem 1 GM in Sodium Chloride 0.9% 100 ML IVPB SCH ×3 (04:30→20:32)
[2020-09-01] MEDS: Ascorbic Acid 500 mg Chewable Tablet PO SCH (07:53)
[2020-09-01] MEDS: Potassium Chloride 20 MEQ TAB PO SCH ×2 (07:53→17:23)
[2020-09-01] MEDS: Escitalopram Oxalate 20 mg Tablet PO SCH (07:53)
[2020-09-01] MEDS: Aspirin 81 mg Enteric Coated Tablet PO SCH (07:54)
[2020-09-01] MEDS: Saccharomyces boulardii 250 MG CAP PO SCH (07:54)
[2020-09-01] MEDS: Clopidogrel Bisulfate 75 MG TAB PO SCH (07:54)
[2020-09-01] MEDS: Carvedilol 3.125 MG TAB PO SCH ×2 (07:54→20:33)
[2020-09-01] MEDS: Nystatin Powder 15 GM BOT TOP SCH ×2 (07:55→20:35)
[2020-09-01] MEDS: Mometasone/Formoterol 60 PUFF AER INH SCH ×2 (07:55→20:34)
[2020-09-01] MEDS: Polyethylene Glycol 3350 17 GM Packet PO SCH (08:04)
[2020-09-01] MEDS: Calcium Carbonate 600 MG + Vit D TAB PO SCH ×2 (08:04→20:33)
[2020-09-01] MEDS: traMADol HCl 50 MG TAB PO PRN ×2 (09:21→23:47)
[2020-09-01] MEDS: Mirtazapine 15 MG TAB PO SCH (20:33)
[2020-09-01] MEDS: Rosuvastatin 10 MG TAB PO SCH (20:33)
[2020-09-02] MEDS: Meropenem 1 GM in Sodium Chloride 0.9% 100 ML IVPB SCH ×3 (04:34→20:30)
[2020-09-02] MEDS: Ascorbic Acid 500 mg Chewable Tablet PO SCH (08:24)
[2020-09-02] MEDS: Carvedilol 3.125 MG TAB PO SCH ×2 (08:24→20:34)
[2020-09-02] MEDS: Aspirin 81 mg Enteric Coated Tablet PO SCH (08:24)
[2020-09-02] MEDS: Saccharomyces boulardii 250 MG CAP PO SCH (08:24)
[2020-09-02] MEDS: Potassium Chloride 20 MEQ TAB PO SCH ×2 (08:25→17:02)
[2020-09-02] MEDS: Calcium Carbonate 600 MG + Vit D TAB PO SCH ×2 (08:26→20:34)
[2020-09-02] MEDS: Escitalopram Oxalate 20 mg Tablet PO SCH (08:26)
[2020-09-02] MEDS: Clopidogrel Bisulfate 75 MG TAB PO SCH (08:26)
[2020-09-02] MEDS: Acetaminophen 325 MG TAB PO PRN (08:27)
[2020-09-02] MEDS: Nystatin Powder 15 GM BOT TOP SCH ×2 (08:28→20:31)
[2020-09-02] MEDS: Mometasone/Formoterol 60 PUFF AER INH SCH (08:28)
[2020-09-02] MEDS: Polyethylene Glycol 3350 17 GM Packet PO SCH (08:29)
[2020-09-02] MEDS: Morphine 2 MG/ML VIAL SLOW IVP PRN (13:27)
[2020-09-02] MEDS: traMADol HCl 50 MG TAB PO PRN (13:35)
[2020-09-02] MEDS: Rosuvastatin 10 MG TAB PO SCH (20:32)
[2020-09-02] MEDS: Mirtazapine 15 MG TAB PO SCH (20:34)
[2020-09-03] MEDS: Mometasone/Formoterol 60 PUFF AER INH SCH ×3 (00:31→20:15)
[2020-09-03] MEDS: Meropenem 1 GM in Sodium Chloride 0.9% 100 ML IVPB SCH ×3 (04:30→20:13)
[2020-09-03] MEDS: Ascorbic Acid 500 mg Chewable Tablet PO SCH (08:23)
[2020-09-03] MEDS: Potassium Chloride 20 MEQ TAB PO SCH ×2 (08:24→17:08)
[2020-09-03] MEDS: Saccharomyces boulardii 250 MG CAP PO SCH (08:24)
[2020-09-03] MEDS: Aspirin 81 mg Enteric Coated Tablet PO SCH (08:25)
[2020-09-03] MEDS: Escitalopram Oxalate 20 mg Tablet PO SCH (08:25)
[2020-09-03] MEDS: Carvedilol 3.125 MG TAB PO SCH ×2 (08:25→20:14)
[2020-09-03] MEDS: Calcium Carbonate 600 MG + Vit D TAB PO SCH ×2 (08:25→20:14)
[2020-09-03] MEDS: Clopidogrel Bisulfate 75 MG TAB PO SCH (08:25)
[2020-09-03] MEDS: Nystatin Powder 15 GM BOT TOP SCH ×2 (08:27→20:15)
[2020-09-03] MEDS: Polyethylene Glycol 3350 17 GM Packet PO SCH (08:29)
[2020-09-03] MEDS: traMADol HCl 50 MG TAB PO PRN (11:47)
[2020-09-03] MEDS: Mirtazapine 15 MG TAB PO SCH (20:14)
[2020-09-03] MEDS: Rosuvastatin 10 MG TAB PO SCH (20:14)
[2020-09-04] MEDS: Meropenem 1 GM in Sodium Chloride 0.9% 100 ML IVPB SCH ×3 (04:12→20:12)
[2020-09-04] MEDS: Potassium Chloride 20 MEQ TAB PO SCH ×2 (08:26→16:36)
[2020-09-04] MEDS: Ascorbic Acid 500 mg Chewable Tablet PO SCH (08:27)
[2020-09-04] MEDS: Escitalopram Oxalate 20 mg Tablet PO SCH (08:30)
[2020-09-04] MEDS: Carvedilol 3.125 MG TAB PO SCH ×2 (08:30→20:12)
[2020-09-04] MEDS: Saccharomyces boulardii 250 MG CAP PO SCH (08:30)
[2020-09-04] MEDS: Clopidogrel Bisulfate 75 MG TAB PO SCH (08:30)
[2020-09-04] MEDS: Calcium Carbonate 600 MG + Vit D TAB PO SCH ×2 (08:30→20:12)
[2020-09-04] MEDS: Aspirin 81 mg Enteric Coated Tablet PO SCH (08:31)
[2020-09-04] MEDS: Nystatin Powder 15 GM BOT TOP SCH ×2 (08:32→20:16)
[2020-09-04] MEDS: Mometasone/Formoterol 60 PUFF AER INH SCH ×2 (08:32→20:15)
[2020-09-04] MEDS: Polyethylene Glycol 3350 17 GM Packet PO SCH (08:34)
[2020-09-04] MEDS: traMADol HCl 50 MG TAB PO PRN (13:06)
[2020-09-04] MEDS: Morphine 2 MG/ML VIAL SLOW IVP PRN (13:07)
[2020-09-04] MEDS: Mirtazapine 15 MG TAB PO SCH (20:12)
[2020-09-04] MEDS: Rosuvastatin 10 MG TAB PO SCH (20:12)
[2020-09-05] MEDS: Meropenem 1 GM in Sodium Chloride 0.9% 100 ML IVPB SCH ×3 (04:23→19:55)
[2020-09-05 04:29] LABS: #Basophils 0.1 thou/uL (0.0-0.2); #Eosinphils 0.3 thou/uL (0.0-0.7); #Lymphocytes 1.5 thou/uL (1.20-3.40); #Monocytes 0.7 thou/uL (0.11-0.59); #Neutrophils 4.1 thou/uL (1.40-6.50); %Basophils 1.3 % (0.0-1.0); %Eosinophils 3.8 % (0.0-10.0); %Monocytes 10.9 % (0.0-10.0); %Neutrophils 61.9 % (42.0-75.0); Hemoglobin 9.7 g/dL (14.0-18.0); Mean Corpuscular HGB CONC 30.9 g/dL (32.0-36.0); Mean Corpuscular Hemoglobin 28.9 pg (27.0-31.0); Mean Corpuscular Volume 93.6 fL (78.0-98.0); Mean Platelet Volume 5.4 fL (7.4-10.4); Platelet Count 225 thou/uL (130-400); RBC Distribution Width 16.9 % (11.5-14.5); Red Blood Cell (RBC) Count 3.37 mill/uL (4.70-6.10); White Blood Cell (WBC) Count 6.7 thou/uL (4.8-10.8)
[2020-09-05 04:46] LABS: ALT (SGPT) 21 U/L (8-55); AST (SGOT) 20 U/L (5-34); Albumin 1.8 g/dL (3.4-4.8); Alkaline Phosphatase 100 U/L (40-110); Anion Gap 12 mmol/L (10-20); BUN (Urea Nitrogen) 12 mg/dL (8.4-25.7); Bilirubin, Total 0.3 mg/dL (0.2-1.2); Calc. Creatinine Clearance 145 mL/min (70-130); Calcium 7.7 mg/dL (7.8-10.44); Carbon Dioxide 20 mmol/L (23-31); Chloride 115 mmol/L (98-107); Globulin 3.3 g/dL (2.4-3.5); Glucose 97 mg/dL (80-115); Protein, Total 5.1 g/dL (5.8-8.1); Sodium 143 mmol/L (136-145)
[2020-09-05] MEDS: Potassium Chloride 20 MEQ TAB PO SCH ×2 (08:52→16:34)
[2020-09-05] MEDS: Ascorbic Acid 500 mg Chewable Tablet PO SCH (08:53)
[2020-09-05] MEDS: Clopidogrel Bisulfate 75 MG TAB PO SCH (08:54)
[2020-09-05] MEDS: Calcium Carbonate 600 MG + Vit D TAB PO SCH ×2 (08:54→19:57)
[2020-09-05] MEDS: Escitalopram Oxalate 20 mg Tablet PO SCH (08:54)
[2020-09-05] MEDS: Saccharomyces boulardii 250 MG CAP PO SCH (08:54)
[2020-09-05] MEDS: Aspirin 81 mg Enteric Coated Tablet PO SCH (08:54)
[2020-09-05] MEDS: Carvedilol 3.125 MG TAB PO SCH ×2 (08:55→19:57)
[2020-09-05] MEDS: Mometasone/Formoterol 60 PUFF AER INH SCH ×2 (08:56→19:58)
[2020-09-05] MEDS: Nystatin Powder 15 GM BOT TOP SCH ×2 (08:57→19:58)
[2020-09-05] MEDS: Polyethylene Glycol 3350 17 GM Packet PO SCH (08:58)
[2020-09-05] MEDS: Rosuvastatin 10 MG TAB PO SCH (19:57)
[2020-09-05] MEDS: Mirtazapine 15 MG TAB PO SCH (20:36)
[2020-09-06] MEDS: Meropenem 1 GM in Sodium Chloride 0.9% 100 ML IVPB SCH ×3 (04:25→19:58)
[2020-09-06] MEDS: Ascorbic Acid 500 mg Chewable Tablet PO SCH (08:33)
[2020-09-06] MEDS: Potassium Chloride 20 MEQ TAB PO SCH ×2 (08:34→16:27)
[2020-09-06] MEDS: Escitalopram Oxalate 20 mg Tablet PO SCH (08:35)
[2020-09-06] MEDS: Calcium Carbonate 600 MG + Vit D TAB PO SCH ×2 (08:36→20:02)
[2020-09-06] MEDS: Saccharomyces boulardii 250 MG CAP PO SCH (08:36)
[2020-09-06] MEDS: Clopidogrel Bisulfate 75 MG TAB PO SCH (08:36)
[2020-09-06] MEDS: Carvedilol 3.125 MG TAB PO SCH ×2 (08:36→20:02)
[2020-09-06] MEDS: Aspirin 81 mg Enteric Coated Tablet PO SCH (08:36)
[2020-09-06] MEDS: Mometasone/Formoterol 60 PUFF AER INH SCH ×2 (08:38→20:03)
[2020-09-06] MEDS: Nystatin Powder 15 GM BOT TOP SCH ×2 (08:38→20:05)
[2020-09-06] MEDS: Polyethylene Glycol 3350 17 GM Packet PO SCH (08:47)
[2020-09-06] MEDS: traMADol HCl 50 MG TAB PO PRN (20:01)
[2020-09-06] MEDS: Rosuvastatin 10 MG TAB PO SCH (20:02)
[2020-09-06] MEDS: Mirtazapine 15 MG TAB PO SCH (20:02)
[2020-09-07] MEDS: Meropenem 1 GM in Sodium Chloride 0.9% 100 ML IVPB SCH ×3 (04:00→20:40)
[2020-09-07] MEDS: Ascorbic Acid 500 mg Chewable Tablet PO SCH (08:13)
[2020-09-07] MEDS: Potassium Chloride 20 MEQ TAB PO SCH ×2 (08:13→17:44)
[2020-09-07] MEDS: Escitalopram Oxalate 20 mg Tablet PO SCH (08:14)
[2020-09-07] MEDS: Aspirin 81 mg Enteric Coated Tablet PO SCH (08:14)
[2020-09-07] MEDS: Carvedilol 3.125 MG TAB PO SCH ×2 (08:14→20:40)
[2020-09-07] MEDS: Calcium Carbonate 600 MG + Vit D TAB PO SCH ×2 (08:14→20:40)
[2020-09-07] MEDS: Clopidogrel Bisulfate 75 MG TAB PO SCH (08:15)
[2020-09-07] MEDS: Mometasone/Formoterol 60 PUFF AER INH SCH ×2 (08:15→20:47)
[2020-09-07] MEDS: Saccharomyces boulardii 250 MG CAP PO SCH (08:15)
[2020-09-07] MEDS: Nystatin Powder 15 GM BOT TOP SCH ×2 (08:16→20:47)
[2020-09-07] MEDS: Polyethylene Glycol 3350 17 GM Packet PO SCH (08:17)
[2020-09-07] MEDS: traMADol HCl 50 MG TAB PO PRN (14:37)
[2020-09-07] MEDS: Morphine 2 MG/ML VIAL SLOW IVP PRN (15:34)
[2020-09-07] MEDS: Rosuvastatin 10 MG TAB PO SCH (20:40)
[2020-09-07] MEDS: Mirtazapine 15 MG TAB PO SCH (20:40)
[2020-09-08] MEDS: Meropenem 1 GM in Sodium Chloride 0.9% 100 ML IVPB SCH ×3 (04:39→23:51)
[2020-09-08] MEDS: Calcium Carbonate 600 MG + Vit D TAB PO SCH ×2 (08:11→20:49)
[2020-09-08] MEDS: Potassium Chloride 20 MEQ TAB PO SCH ×2 (08:11→16:57)
[2020-09-08] MEDS: Aspirin 81 mg Enteric Coated Tablet PO SCH (08:11)
[2020-09-08] MEDS: Carvedilol 3.125 MG TAB PO SCH ×2 (08:12→20:49)
[2020-09-08] MEDS: Ascorbic Acid 500 mg Chewable Tablet PO SCH (08:12)
[2020-09-08] MEDS: Clopidogrel Bisulfate 75 MG TAB PO SCH (08:13)
[2020-09-08] MEDS: Saccharomyces boulardii 250 MG CAP PO SCH (08:13)
[2020-09-08] MEDS: Escitalopram Oxalate 20 mg Tablet PO SCH (08:13)
[2020-09-08] MEDS: Mometasone/Formoterol 60 PUFF AER INH SCH ×2 (08:14→20:51)
[2020-09-08] MEDS: Nystatin Powder 15 GM BOT TOP SCH ×2 (08:16→20:51)
[2020-09-08] MEDS: Polyethylene Glycol 3350 17 GM Packet PO SCH (08:17)
[2020-09-08] MEDS: traMADol HCl 50 MG TAB PO PRN (10:54)
[2020-09-08] MEDS ORDERED: Acetaminophen 325 MG TAB PO PRN (20:26)
[2020-09-08] MEDS ORDERED: Benzonatate 100 MG CAP PO PRN (20:27)
[2020-09-08] MEDS ORDERED: Loperamide HCl 2 MG CAP PO PRN (20:28)
[2020-09-08] MEDS ORDERED: Metoclopramide HCl 10 MG/2 ML VIAL IVP PRN (20:30)
[2020-09-08] MEDS ORDERED: Morphine 2 MG/ML VIAL SLOW IVP PRN (20:31)
[2020-09-08] MEDS ORDERED: Milk Of Magnesia 30 ML UDCUP PO PRN (20:32)
[2020-09-08] MEDS ORDERED: Senokot 8.6 MG TAB PO PRN (20:32)
[2020-09-08] MEDS ORDERED: Meropenem 1 GM in Sodium Chloride 0.9% 100 ML IVPB SCH (20:45)
[2020-09-08] MEDS: Mirtazapine 15 MG TAB PO SCH (20:50)
[2020-09-08] MEDS: Rosuvastatin 10 MG TAB PO SCH (20:54)
[2020-09-09] MEDS: Meropenem 1 GM in Sodium Chloride 0.9% 100 ML IVPB SCH ×3 (04:41→20:02)
[2020-09-09] MEDS: Saccharomyces boulardii 250 MG CAP PO SCH (08:11)
[2020-09-09] MEDS: Aspirin 81 mg Enteric Coated Tablet PO SCH (08:11)
[2020-09-09] MEDS: Calcium Carbonate 600 MG + Vit D TAB PO SCH ×2 (08:12→20:23)
[2020-09-09] MEDS: Potassium Chloride 20 MEQ TAB PO SCH ×2 (08:12→16:49)
[2020-09-09] MEDS: Ascorbic Acid 500 mg Chewable Tablet PO SCH (08:12)
[2020-09-09] MEDS: Clopidogrel Bisulfate 75 MG TAB PO SCH (08:13)
[2020-09-09] MEDS: Carvedilol 3.125 MG TAB PO SCH ×2 (08:13→20:22)
[2020-09-09] MEDS: Escitalopram Oxalate 20 mg Tablet PO SCH (08:13)
[2020-09-09] MEDS: Nystatin Powder 15 GM BOT TOP SCH ×2 (08:15→20:23)
[2020-09-09] MEDS: Polyethylene Glycol 3350 17 GM Packet PO SCH (08:16)
[2020-09-09] MEDS: Mometasone/Formoterol 60 PUFF AER INH SCH ×2 (08:22→20:24)
[2020-09-09] MEDS: traMADol HCl 50 MG TAB PO PRN (10:31)
[2020-09-09] MEDS: Mirtazapine 15 MG TAB PO SCH (20:22)
[2020-09-09] MEDS: Rosuvastatin 10 MG TAB PO SCH (20:23)
[2020-09-10 06:16] VITALS: BP 107/68; TEMP 97.8
[2020-09-10] MEDS: Potassium Chloride 20 MEQ TAB PO SCH (08:14)
[2020-09-10] MEDS: Ascorbic Acid 500 mg Chewable Tablet PO SCH (08:14)
[2020-09-10] MEDS: Carvedilol 3.125 MG TAB PO SCH (08:16)
[2020-09-10] MEDS: Saccharomyces boulardii 250 MG CAP PO SCH (08:16)
[2020-09-10] MEDS: Clopidogrel Bisulfate 75 MG TAB PO SCH (08:16)
[2020-09-10] MEDS: Calcium Carbonate 600 MG + Vit D TAB PO SCH (08:17)
[2020-09-10] MEDS: Escitalopram Oxalate 20 mg Tablet PO SCH (08:18)
[2020-09-10] MEDS: Aspirin 81 mg Enteric Coated Tablet PO SCH (08:19)
[2020-09-10] MEDS: Mometasone/Formoterol 60 PUFF AER INH SCH (08:21)
[2020-09-10] MEDS: Polyethylene Glycol 3350 17 GM Packet PO SCH (08:23)
[2020-09-10] MEDS: Nystatin Powder 15 GM BOT TOP SCH (08:23)
[2020-09-10] MEDS: traMADol HCl 50 MG TAB PO PRN (09:56)
== END 2020-09-10 10:50 | disposition home health service (06) | DRG 947 ==
LOC: BURMED 14:00 → UNDOADMIN 14:00 → BURMED 08-01 00:11 → UNDODISIN 09-08 18:04
PROVIDERS: ADMIT Family Medicine; ATTEND Family Medicine
DX: R53.1 Weakness (principal); L89.154 Pressure ulcer of sacral region, stage 4; M86.8X8 Other osteomyelitis, other site; E46 Unspecified protein-calorie malnutrition; R63.0 Anorexia; E87.6 Hypokalemia; I10 Essential (primary) hypertension; E66.9 Obesity, unspecified; E78.5 Hyperlipidemia, unspecified; K21.9 Gastro-esophageal reflux disease without esophagitis; E78.00 Pure hypercholesterolemia, unspecified; I25.10 Atherosclerotic heart disease of native coronary artery without angina pectoris; Z96.611 Presence of right artificial shoulder joint; Z87.891 Personal history of nicotine dependence; Z68.28 Body mass index [BMI] 28.0-28.9, adult; Z86.16 Personal history of COVID-19; Z80.1 Family history of malignant neoplasm of trachea, bronchus and lung; Z79.82 Long term (current) use of aspirin; Z79.899 Other long term (current) drug therapy; Z95.1 Presence of aortocoronary bypass graft; Z83.6 Family history of other diseases of the respiratory system; Z90.49 Acquired absence of other specified parts of digestive tract; D64.9 Anemia, unspecified
CPT/HCPCS: 36415; 80048; 80053; 84132; 85025; 86140; 94664; J0171; J2185; J2270; J2765; J3490; J7512; J7620; Q0162

== ENCOUNTER 2022-01-18 17:30 | Emergency (ER) | payer MEDICARE | END 2022-01-18 19:40 | disposition home or self-care (01) | LOC: BURERS 17:30 | DX: S52.122A Displaced fracture of head of left radius, initial encounter for closed fracture (principal); K21.9 Gastro-esophageal reflux disease without esophagitis; E78.00 Pure hypercholesterolemia, unspecified; I25.10 Atherosclerotic heart disease of native coronary artery without angina pectoris; I10 Essential (primary) hypertension; F17.210 Nicotine dependence, cigarettes, uncomplicated; W19.XXXA Unspecified fall, initial encounter | CPT/HCPCS: 29125 ==

== ENCOUNTER 2022-06-15 14:30 | Emergency (ER) | payer MEDICARE ==
[2022-06-15] MEDS ORDERED: Ketorolac Tromethamine 30 MG/ML VIAL ONE (15:06)
[2022-06-15 15:10] LABS: #Basophils 0.1 thou/uL (0.0-0.2); #Eosinphils 0.1 thou/uL (0.0-0.7); #Lymphocytes 0.8 thou/uL (1.20-3.40); #Monocytes 0.7 thou/uL (0.11-0.59); #Neutrophils 4.8 thou/uL (1.40-6.50); %Basophils 0.9 % (0.0-1.0); %Eosinophils 2.3 % (0.0-10.0); %Lymphocytes 11.8 % (21.0-51.0); %Monocytes 10.6 % (0.0-10.0); %Neutrophils 74.5 % (42.0-75.0); Hemoglobin 17.1 g/dL (14.0-18.0); Mean Corpuscular HGB CONC 31.4 g/dL (32.0-36.0); Mean Corpuscular Hemoglobin 28.4 pg (27.0-31.0); Mean Corpuscular Volume 90.5 fl (78.0-98.0); Mean Platelet Volume 6.3 fL (7.4-10.4); Platelet Count 175 10x3/uL (130-400); Red Blood Cell (RBC) Count 6.02 mill/uL (4.70-6.10); White Blood Cell (WBC) Count 6.4 10x3/uL (4.8-10.8)
[2022-06-15 15:19] LABS: Blood, Urine Large (Negative); Clarity Turbid (Clear)
[2022-06-15 15:20] LABS: Bilirubin Unable to Interpret (Negative); Glucose, Urine (Dipstick) Unable to Interpret mg/dL (Negative); Ketone, Urine Unable to Interpret mg/dL (Negative); Leukocyte Unable to Interpret (Negative); Nitrite Unable to Interpret (Negative); Protein, Urine (Dipstick) Unable to Interpret mg/dL (Neg-Trace); Specific Gravity, Urine 1.019 (1.002-1.036); Urobilinogen UNABLE TO INTERPRET mg/dL (Less than 2)
[2022-06-15 15:22] LABS: RBC/HPF Greater than 50 HPF (0-3); WBC/HPF 0-3 HPF (0-3)
[2022-06-15 15:23] LABS: Bacteria/HPF 1+ HPF (None Seen); Squamous Epithelial None Seen HPF (0-3)
[2022-06-15 15:30] LABS: ALT (SGPT) 21 U/L (8-55); AST (SGOT) 15 U/L (5-34); Alkaline Phosphatase 91 U/L (40-110); Anion Gap 11 mmol/L (10-20); BUN (Urea Nitrogen) 15 mg/dL (8.4-25.7); Bilirubin, Total 1.4 mg/dL (0.2-1.2); Calc. Creatinine Clearance 0 mL/min (70-130); Calcium 8.9 mg/dL (7.8-10.44); Carbon Dioxide 21 mmol/L (23-31); Chloride 109 mmol/L (98-107); Estimated GFR 77; Globulin 3.1 g/dL (2.4-3.5); Glucose 120 mg/dL (80-115); Potassium 4.2 mmol/L (3.5-5.1); Protein, Total 7.1 g/dL (5.8-8.1); Sodium 137 mmol/L (136-145)
== END 2022-06-15 16:26 | disposition home or self-care (01) ==
LOC: BURERS 14:30
DX: R31.9 Hematuria, unspecified (principal); K21.9 Gastro-esophageal reflux disease without esophagitis; E78.00 Pure hypercholesterolemia, unspecified; I25.10 Atherosclerotic heart disease of native coronary artery without angina pectoris; I10 Essential (primary) hypertension; Z87.891 Personal history of nicotine dependence; Z79.899 Other long term (current) drug therapy; Z79.82 Long term (current) use of aspirin
CPT/HCPCS: 74177; 80053; 81003; 81015; 85025; 87086; 96374; J1885; Q9967

== ENCOUNTER 2024-04-02 14:22 | Emergency (ER) | payer MEDICARE | END 2024-04-02 14:49 | disposition short-term general hospital (02) | LOC: BURERS 14:22 | DX: N50.89 Other specified disorders of the male genital organs (principal); I10 Essential (primary) hypertension; Z87.891 Personal history of nicotine dependence | CPT/HCPCS: 99284 ==